=== PATIENT | female | born 1935 | race Hispanic/Latino ===

== ENCOUNTER 2017-12-28 14:09 | Observation (INO) | payer MEDICARE, OTHER ==
[2017-12-28 14:31] VITALS: BMI 35.7
--- NOTE | 2017-12-28 15:18 | ED PDOC ---
Arrival/HPI - General Chief Complaint: Lower Extremity Problem/Injury Time Seen by Provider: 12/28/17 14:52 Historian: Patient - History of Present Illness Narrative History of Present Illness (Text): 12/29/17 01:46 82yo female with pmhx of newly diagnosed NIDDM present with the daughter for b/ l lower leg pain and infection. The daughter states patient was seen at [facility] ED last week and was started on Metformin and keflex for her infection. She saw her PMD today for the worsening lower leg infection and was referred to ED. The daughter states that xray was done at [facility] and it was negative for osteomylitis and Doppler US was negative for DVT b/l. Her PMD referred her to ED for further evaluation. She denies fever, chills, SOB, chest pain, diaphoresis, recent travel/surgery, any other complaint. Past Medical History - Provider Review Nursing Documentation Reviewed: Yes - Infectious Disease Hx of Infectious Diseases: None - Reproductive Menopause: Yes - Cardiac Hx Cardiac Disorders: Yes Hx Hypertension: Yes - Pulmonary Hx Respiratory Disorders: No - Neurological Hx Neurological Disorder: No - HEENT Hx HEENT Disorder: Yes Other/Comment: Wears glasses - Endocrine/Metabolic Hx Endocrine Disorders: Yes Hx Diabetes Mellitus Type 1: Yes - Hematological/Oncological Hx Blood Disorders: No - Integumentary Hx Dermatological Disorder: Yes Hx Cellulitis: Yes - Musculoskeletal/Rheumatological Hx Musculoskeletal Disorders: No - Gastrointestinal Hx Gastrointestinal Disorders: No - Genitourinary/Gynecological Hx Genitourinary Disorders: No - Psychiatric Hx Psychophysiologic Disorder: Yes Hx Depression: Yes Hx Substance Use: No - Surgical History Hx Appendectomy: Yes Hx Cholecystectomy: Yes Hx Orthopedic Surgery: Yes (Bunion R Foot) Family/Social History - Physician Review Nursing Documentation Reviewed: Yes Family/Social History: Unknown Family HX Smoking Status: Never Smoked Hx Alcohol Use: Yes Frequency of alcohol use: Socially Hx Substance Use: No Allergies/Home Meds Allergies/Adverse Reactions: Allergies shellfish derived Allergy (Verified 12/28/17 14:31) ANAPHYLAXIS Home Medications: Home Meds Medication Instructions Recorded Confirmed Cephalexin [Keflex] 500 mg PO DAILY 12/28/17 12/28/17 metFORMIN [glucOPHAGE] 500 mg PO BID 12/28/17 12/28/17 Review of Systems - Physician Review All systems were reviewed & negative as marked: Yes - Review of Systems Constitutional: Normal Eyes: Normal ENT: Normal Respiratory: Normal Cardiovascular: Edema. absent: Chest Pain, Palpitations, Calf Pain Gastrointestinal: Normal Genitourinary Female: Normal Musculoskeletal: Arthralgias (Lower leg pain) Skin: Normal Neurological: Normal Endocrine: Normal Hemo/Lymphatic: Normal Psychiatric: Normal Physical Exam Vital Signs Reviewed: Yes Vital Signs Temp Pulse Resp BP Pulse Ox 12/28/17 17:28 89 18 145/71 97 12/28/17 16:50 96 H 18 148/79 97 12/28/17 14:31 98.6 F 100 H 18 150/89 97 Temperature: Afebrile Blood Pressure: Normal Pulse: Regular Respiratory Rate: Normal Appearance: Positive for: Well-Appearing, Non-Toxic, Comfortable Pain Distress: None Mental Status: Positive for: Alert and Oriented X 3 - Systems Exam Head: Present: Atraumatic, Normocephalic Pupils: Present: PERRL Extroacular Muscles: Present: EOMI Conjunctiva: Present: Normal Mouth: Present: Moist Mucous Membranes Neck: Present: Normal Range of Motion Respiratory/Chest: Present: Clear to Auscultation, Good Air Exchange. No: Respiratory Distress, Accessory Muscle Use Cardiovascular: Present: Regular Rate and Rhythm, Normal S1, S2. No: Murmurs Abdomen: No: Tenderness, Distention, Peritoneal Signs Back: Present: Normal Inspection Upper Extremity: Present: Normal Inspection. No: Cyanosis, Edema Lower Extremity: Present: Edema (3+ pitting edema ), Tenderness (B/L LE), Erythema (Over right posterior lower leg with small wound noted), Temperature Abnormalties (Warm to touch), Neurovascularly Intact. No: CALF TENDERNESS Neurological: Present: GCS=15, CN II-XII Intact, Speech Normal Skin: Present: Warm, Dry, Normal Color. No: Rashes Psychiatric: Present: Alert, Oriented x 3, Normal Insight, Normal Concentration Medical Decision Making ED Course and Treatment: 12/29/17 01:42 PT presented for stated history. she was hemodynamically stable. Her lab was noted without leukocytosis. Insulin was given in ED for hyperglycemia. Pt is a new onset diabetic and also failed outpt oral antibiotic. She was admitted for IV abx. EKG Sinus rhythm with 1st degree AV block @82bpm NSTEMI CXR Cardiomegaly. NAD Case was DW Dr. Robles and pt was admitted. - Lab Interpretations Lab Results: 12/28/17 15:38 12/28/17 15:38 Lab Results 12/28/17 16:40: POC Glucose (mg/dL) 377 H 12/28/17 15:38: Troponin I < 0.01, NT-Pro-B Natriuret Pep 66.5 12/28/17 15:38: Sodium 134, Potassium 4.4, Chloride 89 L, Carbon Dioxide 34 H, Anion Gap 16, BUN 35 H, Creatinine 1.0, Est GFR ( Amer) > 60, Est GFR ( Non-Af Amer) 53, Random Glucose 391 H*, Calcium 10.8 H, Total Bilirubin 0.3, AST 33, ALT 35, Alkaline Phosphatase 88, Total Protein 7.4, Albumin 4.2, Globulin 3.1, Albumin/Globulin Ratio 1.3 12/28/17 15:38: PT 11.6, INR 1.02, APTT 27.0 12/28/17 15:38: WBC 7.9, RBC 4.62, Hgb 14.4, Hct 40.6, MCV 87.9, MCH 31.2, MCHC 35.5, RDW 13.7, Plt Count 222, MPV 11.2 H, Gran % 64.8, Lymph % (Auto) 26.5, [place] % (Auto) 6.6 H, Eos % (Auto) 1.8, Baso % (Auto) 0.3, Gran # 5.09, Lymph # ( Auto) 2.1, [place] # (Auto) 0.5, Eos # (Auto) 0.1, Baso # (Auto) 0.02 - RAD Interpretation Radiology Orders: 12/28/17 17:22 CHEST PORTABLE [RAD] Stat - Medication Orders Current Medication Orders: Acetaminophen (Tylenol 325mg Tab) 650 mg PO Q6H PRN PRN Reason: Fever >100.4 F Furosemide (Lasix) 40 mg IVP DAILY [facility] Ampicillin Sodium/Sulbactam (Sodium 1.5 gm/ Sodium Chloride) 100 mls @ 200 mls/ hr IVPB Q6 [facility] PRN Reason: Protocol Last Admin: 12/29/17 00:02 Dose: 200 mls/hr eMAR Start Stop Document 12/29/17 00:02 [facility]AD (Rec: 12/29/17 00:02 [id number]) Intravenous Solution Start Date 12/29/17 Start Time 00:02 Insulin Human Regular (Humulin R Low) 0 units SC ACHS CY[facility]Y PRN Reason: Protocol Last Admin: 12/28/17 22:00 Dose: Not Given Non-Admin Reason: Blood Sugar Parameter MAR Blood Glucose Document 12/28/17 22:00 [facility] (Rec: 12/29/17 00:00 [id number]) Blood Glucose Finger Stick Blood Glucose (70-120) 251 Subcutaneous Administrations Document 12/28/17 22:00 [facility] (Rec: 12/29/17 00:00 [id number]) Charges for Administration # of Subcutaneous Administrations 1 Potassium Chloride (K-Dur 20 Meq Er Tab) 20 meq PO BRK CYND[facility] Discontinued Medications Ceftriaxone Sodium (Rocephin 1 Gram Ivpb) 1 gm in 100 mls @ 100 mls/hr IVPB DAILY [facility] PRN Reason: Protocol Stop: 12/28/17 17:25 Last Admin: 12/28/17 17:42 Dose: Piperacillin Sod/Tazobactam Sod (Zosyn 3.375 In Ns 100ml) 100 mls @ 200 mls/hr IVPB STAT STA PRN Reason: Protocol Stop: 12/28/17 17:43 Last Admin: 12/28/17 17:42 Dose: 200 mls/hr eMAR Start Stop Document 12/28/17 17:42 EQ (Rec: 12/28/17 17:42 EQ [id number]) Intravenous Solution Start Date 12/28/17 Start Time 17:42 Insulin Human Regular (Humulin R) 8 units IVP ONCE STA Stop: 12/28/17 16:32 Last Admin: 12/28/17 17:14 Dose: 8 units MAR Blood Glucose Document 12/28/17 17:14 EQ (Rec: 12/28/17 17:14 EQ [id number]) Blood Glucose Finger Stick Blood Glucose (70-120) 371 IVP Administration Document 12/28/17 17:14 EQ (Rec: 12/28/17 17:14 EQ [id number]) Charges for Administration # of IVP Administrations 1 Disposition/Present on Arrival - Present on Arrival Any Indicators Present on Arrival: No History of DVT/PE: No History of Uncontrolled Diabetes: No Urinary Catheter: No History of Decub. Ulcer: No History Surgical Site Infection Following: None - Disposition Have Diagnosis and Disposition been Completed?: Yes Diagnosis: Hyperglycemia, Cellulitis Disposition: HOSPITALIZED Disposition Time: 16:35 Patient Plan: Admission Condition: FAIR
[2017-12-28 16:00] LABS: BASO # 0.02 K/mm3 (0.0-2.0); BASO % 0.3 % (0.0-3.0); EOS # 0.1 (0.0-0.7); EOS % 1.8 % (1.5-5.0); GRAN # 5.09 (1.4-6.5); GRAN % 64.8 % (50.0-68.0); HEMOGLOBIN 14.4 g/dL (12.0-16.0); LYMPH # 2.1 (1.2-3.4); LYMPH % 26.5 % (22.0-35.0); MEAN CELL VOLUME 87.9 fl (80.0-105.0); MEAN CORPUSCULAR HEMOGLOBIN 31.2 pg (25.0-35.0); MEAN CORPUSCULAR HGB CONC 35.5 g/dl (31.0-37.0); MEAN PLATELET VOLUME 11.2 fl (7.0-11.0); MONO # 0.5 (0.1-0.6); MONO % 6.6 % (1.0-6.0); RBC 4.62 10^6/uL (3.5-6.1); RED CELL DISTRIBUTION WIDTH 13.7 % (11.5-14.5); WHITE BLOOD COUNT 7.9 10^3/ul (4.5-11.0)
[2017-12-28 16:15] LABS: INR 1.02 (0.93-1.08); PROTHROMBIN TIME 11.6 SECONDS (9.4-12.5)
[2017-12-28] MEDS ORDERED: cefTRIAXone 1 gm 1 GM/100 ML BAG IVPB STA (16:26)
[2017-12-28 16:30] LABS: ALB/GLOB RATIO 1.3 (1.1-1.8); ALBUMIN 4.2 g/dL (3.0-4.8); ALT/SGPT 35 U/L (7-56); AST/SGOT 33 U/L (14-36); BLOOD UREA NITROGEN 35 mg/dL (7-21); CALCIUM 10.8 mg/dL (8.4-10.5); GFR AFRICAN-AMERICAN > 60; GFR NON-AFRICAN AMERICAN 53
[2017-12-28] MEDS ORDERED: Insulin Regular 1 UNITS/0.01 ML ML IVP STA (16:31)
[2017-12-28] MEDS ORDERED: Piperacillin/Tazobact 3.375 gm 100 ML IVPB STA (17:14)
--- NOTE | 2017-12-28 18:30 | RAD ---
HISTORY: admission COMPARISON: No prior. FINDINGS: LUNGS: No active pulmonary disease. PLEURA: No significant pleural effusion identified, no pneumothorax apparent. CARDIOVASCULAR: Cardiomegaly apparent. No pulmonary vascular congestion. OSSEOUS STRUCTURES: No significant abnormalities. VISUALIZED UPPER ABDOMEN: Normal. OTHER FINDINGS: Obese body habitus obscures exam somewhat. IMPRESSION: Cardiomegaly. No acute infiltrate or pleural effusion identified. Pulmonary vascular congestion not apparent.
--- NOTE | 2017-12-28 20:01 | CARD ---
APPROVED REPORT EKG Measurement Heart [id number] <Conclusion> Sinus rhythm with 1st degree AV block Inferior infarct, age undetermined Possible Anterior infarct, age undetermined Abnormal ECG
[2017-12-28 21:18] LABS: B-TYPE NATRIURETIC PEPTIDE 66.5 pg/mL (0-450); TROPONIN I < 0.01 ng/mL
[2017-12-28] MEDS: Insulin Reg-LOW-Coverage SC SCH (22:00)
[2017-12-29 07:07] LABS: BASO # 0.02 K/mm3 (0.0-2.0); BASO % 0.3 % (0.0-3.0); EOS # 0.1 (0.0-0.7); EOS % 1.9 % (1.5-5.0); GRAN # 4.31 (1.4-6.5); GRAN % 64.1 % (50.0-68.0); HEMOGLOBIN 13.1 g/dL (12.0-16.0); LYMPH # 1.9 (1.2-3.4); MEAN CELL VOLUME 87.9 fl (80.0-105.0); MEAN CORPUSCULAR HEMOGLOBIN 30.5 pg (25.0-35.0); MEAN CORPUSCULAR HGB CONC 34.7 g/dl (31.0-37.0); MEAN PLATELET VOLUME 10.6 fl (7.0-11.0); MONO # 0.4 (0.1-0.6); MONO % 5.7 % (1.0-6.0); RBC 4.29 10^6/uL (3.5-6.1); RED CELL DISTRIBUTION WIDTH 13.9 % (11.5-14.5); WHITE BLOOD COUNT 6.7 10^3/ul (4.5-11.0)
[2017-12-29 07:37] LABS: ALB/GLOB RATIO 1.2 (1.1-1.8); ALBUMIN 3.4 g/dL (3.0-4.8); CALCIUM 10.2 mg/dL (8.4-10.5)
[2017-12-29] MEDS: Insulin Reg-LOW-Coverage SC SCH ×4 (09:28→22:00)
[2017-12-29] MEDS: Potassium Chloride 20 mEq ER Tab PO SCH (09:36)
--- NOTE | 2017-12-29 17:12 | HP ---
DATE OF EXAM: 12/29/2017 HISTORY OF PRESENT ILLNESS: The patient is an 82-year-old female, admitted through the emergency department on 12/28/2017 with swelling, redness and pain of the left leg. The patient is admitted for further evaluation and treatment of cellulitis. PAST MEDICAL HISTORY: The patient's past medical history includes type 2 diabetes mellitus, which has been recently uncontrolled; congestive heart failure and hyperparathyroidism with hypercalcemia. The patient also has a history of degenerative joint disease with chronic arthritis. The patient has a history of CA of the colon, status post appendectomy and cholecystectomy. ALLERGIES: THE PATIENT HAS NO KNOWN DRUG ALLERGIES: CURRENT MEDICATIONS: Include Fosamax 10 mg daily. SOCIAL HISTORY: There is no history of tobacco or alcohol use. The patient needs assistance with IADLs and ADLs. REVIEW OF SYSTEMS: The patient denies any chest pain, shortness of breath. There is no nausea, no vomiting, no diarrhea. No fever, no chills. No melena, no bright red blood per rectum. No jaundice. PHYSICAL EXAMINATION: GENERAL: The patient is a well-developed obese female, in no acute distress. VITAL SIGNS: Blood pressure 150/82, temperature 97.9, pulse 78, respiratory rate 20. HEENT: Head is normocephalic, atraumatic. Pupils equal, round, reactive to light. Extraocular movements intact. She has decreased hearing bilaterally. NECK: Supple with no thyromegaly. No carotid bruit. No adenopathy. LUNGS: Clear. HEART: Regular rate and rhythm. ABDOMEN: Soft, obese, nontender. Bowel sounds are normoactive. EXTREMITIES: There is swelling and erythema of the left lower extremity with an area of abrasion on the posterior calf, approximately 1 cm with no purulent drainage at present. NEUROLOGICAL: The patient is awake and confused without focal sensory or motor deficits. SKIN: Warm and dry. LABORATORY DATA: WBC 6.7, hemoglobin 13.1, hematocrit 37.7. Sodium 137, potassium 4.1, chloride 95, CO2 of 32, BUN 35, creatinine 1.2, glucose 277. IMPRESSION: 1. Cellulitis of the left leg. 2. Type 2 diabetes mellitus, uncontrolled. 3. History of congestive heart failure. 4. Degenerative joint disease/obesity. 5. Alzheimer's disease. PLAN: The patient will be admitted to the medical-surgical floor, started empirically on Unasyn 1.5 g IV every [address]. [address] on Accu-Cheks for low-dose regular insulin coverage algorithm. Physical Therapy and Social Work for discharge planning. PAULA Vargas MD [facility]
[2017-12-30] MEDS: Insulin Reg-LOW-Coverage SC SCH ×4 (08:06→23:09)
[2017-12-30] MEDS: Potassium Chloride 20 mEq ER Tab PO SCH (08:07)
--- NOTE | 2017-12-30 11:49 | CP.PCM.PN ---
Subjective - Date & Time of Evaluation Date of Evaluation: 12/30/17 Time of Evaluation: 09:40 - Subjective Subjective: no complaints, denies chest pain, no SOB Objective - Vital Signs/Intake and Output Vital Signs (last 24 hours): Temp Pulse Resp BP Pulse Ox 97.7 F 70 20 130/80 95 12/30/17 06:00 12/30/17 06:00 12/30/17 06:00 12/30/17 09:30 12/30/17 06:00 Intake and Output: 12/30/17 12/30/17 06:59 18:59 Intake Total 400 Balance 400 - Medications Medications: Current Medications Acetaminophen (Tylenol 325mg Tab) 650 mg PO Q6H PRN PRN Reason: Fever >100.4 F Furosemide (Lasix) 20 mg PO DAILY [facility] Last Admin: 12/30/17 09:30 Dose: 20 mg Ampicillin Sodium/Sulbactam (Sodium 1.5 gm/ Sodium Chloride) 100 mls @ 200 mls/ hr IVPB Q6 [facility] PRN Reason: Protocol Last Admin: 12/30/17 05:12 Dose: 200 mls/hr Insulin Human Regular (Humulin R Low) 0 units SC ACHS CY[facility] PRN Reason: Protocol Last Admin: 12/30/17 08:06 Dose: 1 units Metformin HCl (Glucophage) 500 mg PO BID [facility] Last Admin: 12/30/17 09:31 Dose: 500 mg Potassium Chloride (K-Dur 20 Meq Er Tab) 20 meq PO BRK [facility] Last Admin: 12/30/17 08:07 Dose: 20 meq - Labs Labs: 12/29/17 06:45 12/29/17 06:45 PT 11.6 SECONDS (9.4-12.5) 12/28/17 15:38 INR 1.02 (0.93-1.08) 12/28/17 15:38 APTT 27.0 Seconds (25.1-36.5) 12/28/17 15:38 - Respiratory Exam Respiratory Exam: Clear to Ausculation Bilateral, NORMAL BREATHING PATTERN - Cardiovascular Exam Cardiovascular Exam: REGULAR RHYTHM - GI/Abdominal Exam GI & Abdominal Exam: Soft, Normal Bowel Sounds - Extremities Exam Additional comments: decreased swelling and redness L leg - Neurological Exam Neurological Exam: Altered, Awake - Skin Skin Exam: Dry, Warm Assessment and Plan (1) Cellulitis of left leg without foot Status: Acute (2) Type II diabetes mellitus Status: Chronic (3) Alzheimer disease Status: Chronic - Assessment and Plan (Free Text) Plan: continue IV Unasyn, insulin coverage, PT & SW for DC planning
[2017-12-31] MEDS: Potassium Chloride 20 mEq ER Tab PO SCH (08:09)
[2017-12-31] MEDS: Insulin Reg-LOW-Coverage SC SCH ×4 (08:09→21:32)
--- NOTE | 2017-12-31 10:51 | CP.PCM.PN ---
Subjective - Date & Time of Evaluation Date of Evaluation: 12/31/17 Time of Evaluation: 10:30 - Subjective Subjective: c/o pain R foot, OOB in chair, no chest pain or SOB Objective - Vital Signs/Intake and Output Vital Signs (last 24 hours): Temp Pulse Resp BP Pulse Ox 97.7 F 75 20 168/86 H 96 12/31/17 06:00 12/31/17 06:00 12/31/17 06:00 12/31/17 09:39 12/31/17 06:00 Intake and Output: 12/31/17 12/31/17 06:59 18:59 Intake Total 880 Balance 880 - Medications Medications: Current Medications Acetaminophen (Tylenol 325mg Tab) 650 mg PO Q6H PRN PRN Reason: Fever >100.4 F Furosemide (Lasix) 20 mg PO DAILY [facility] Last Admin: 12/31/17 09:39 Dose: 20 mg Ampicillin Sodium/Sulbactam (Sodium 1.5 gm/ Sodium Chloride) 100 mls @ 200 mls/ hr IVPB Q6 CYNDY PRN Reason: Protocol Last Admin: 12/31/17 05:14 Dose: 200 mls/hr Insulin Human Regular (Humulin R Low) 0 units SC ACHS CYNDY PRN Reason: Protocol Last Admin: 12/31/17 08:09 Dose: 1 units Metformin HCl (Glucophage) 1,000 mg PO BID [facility] Potassium Chloride (K-Dur 20 Meq Er Tab) 20 meq PO BRK [facility] Last Admin: 12/31/17 08:09 Dose: 20 meq Tramadol HCl (Ultram) 50 mg PO TID [facility] - Labs Labs: 12/29/17 06:45 12/29/17 06:45 PT 11.6 SECONDS (9.4-12.5) 12/28/17 15:38 INR 1.02 (0.93-1.08) 12/28/17 15:38 APTT 27.0 Seconds (25.1-36.5) 12/28/17 15:38 - Respiratory Exam Respiratory Exam: Clear to Ausculation Bilateral - Cardiovascular Exam Cardiovascular Exam: REGULAR RHYTHM - GI/Abdominal Exam GI & Abdominal Exam: Soft, Normal Bowel Sounds - Extremities Exam Extremities Exam: Pedal Edema - Neurological Exam Neurological Exam: Altered, Awake - Skin Skin Exam: Dry, Warm Assessment and Plan (1) Cellulitis of left leg without foot Status: Acute (2) Type II diabetes mellitus Status: Chronic (3) Alzheimer disease Status: Chronic - Assessment and Plan (Free Text) Plan: continue IV Unasyn, Tramadol 50mg tid PRN pain, PT and SW for DC planning
[2017-12-31 20:31] LABS: BASO # 0.02 K/mm3 (0.0-2.0); BASO % 0.2 % (0.0-3.0); EOS % 0.3 % (1.5-5.0); GRAN # 8.05 (1.4-6.5); HEMOGLOBIN 13.7 g/dL (12.0-16.0); LYMPH # 1.7 (1.2-3.4); LYMPH % 16.7 % (22.0-35.0); MEAN CELL VOLUME 87.2 fl (80.0-105.0); MEAN CORPUSCULAR HEMOGLOBIN 30.7 pg (25.0-35.0); MEAN CORPUSCULAR HGB CONC 35.2 g/dl (31.0-37.0); MEAN PLATELET VOLUME 10.4 fl (7.0-11.0); MONO # 0.5 (0.1-0.6); MONO % 4.8 % (1.0-6.0); RBC 4.46 10^6/uL (3.5-6.1); RED CELL DISTRIBUTION WIDTH 13.5 % (11.5-14.5); WHITE BLOOD COUNT 10.3 10^3/ul (4.5-11.0)
[2017-12-31 21:00] LABS: TROPONIN I < 0.01 ng/mL
[2017-12-31 21:01] LABS: ALB/GLOB RATIO 1.2 (1.1-1.8); ALBUMIN 3.8 g/dL (3.0-4.8); ALT/SGPT 34 U/L (7-56); AST/SGOT 21 U/L (14-36); BLOOD UREA NITROGEN 23 mg/dL (7-21); CALCIUM 10.4 mg/dL (8.4-10.5); GFR AFRICAN-AMERICAN > 60; GFR NON-AFRICAN AMERICAN > 60
[2018-01-01] MEDS: Insulin Reg-LOW-Coverage SC SCH ×4 (08:24→21:39)
[2018-01-01] MEDS: Potassium Chloride 20 mEq ER Tab PO SCH (08:24)
--- NOTE | 2018-01-01 12:59 | CP.PCM.PN ---
Subjective - Date & Time of Evaluation Date of Evaluation: 01/01/18 Time of Evaluation: 10:40 - Subjective Subjective: OOB in chair, NAD Objective - Vital Signs/Intake and Output Vital Signs (last 24 hours): Temp Pulse Resp BP Pulse Ox 97.7 F 91 H 20 164/94 H 95 01/01/18 07:43 01/01/18 07:43 01/01/18 07:43 01/01/18 10:22 01/01/18 07:43 Intake and Output: 01/01/18 01/01/18 06:59 18:59 Intake Total 600 Output Total 1020 Balance -420 - Medications Medications: Current Medications Acetaminophen (Tylenol 325mg Tab) 650 mg PO Q6H PRN PRN Reason: Fever >100.4 F Furosemide (Lasix) 20 mg PO DAILY [facility] Last Admin: 01/01/18 10:22 Dose: 20 mg Ampicillin Sodium/Sulbactam (Sodium 1.5 gm/ Sodium Chloride) 100 mls @ 200 mls/ hr IVPB Q6 CYND[facility] PRN Reason: Protocol Last Admin: 01/01/18 11:41 Dose: 200 mls/hr Insulin Human Regular (Humulin R Low) 0 units SC ACHS CYNDY PRN Reason: Protocol Last Admin: 01/01/18 11:46 Dose: 3 units Losartan Potassium (Cozaar) 50 mg PO DAILY [facility] Last Admin: 01/01/18 11:40 Dose: 50 mg Metformin HCl (Glucophage) 1,000 mg PO BID [facility] Last Admin: 01/01/18 10:22 Dose: 1,000 mg Potassium Chloride (K-Dur 20 Meq Er Tab) 20 meq PO BRK [facility] Last Admin: 01/01/18 08:24 Dose: 20 meq - Labs Labs: 12/31/17 20:20 12/31/17 20:20 PT 11.6 SECONDS (9.4-12.5) 12/28/17 15:38 INR 1.02 (0.93-1.08) 12/28/17 15:38 APTT 27.0 Seconds (25.1-36.5) 12/28/17 15:38 - Respiratory Exam Respiratory Exam: Clear to Ausculation Bilateral, NORMAL BREATHING PATTERN - Cardiovascular Exam Cardiovascular Exam: REGULAR RHYTHM - GI/Abdominal Exam GI & Abdominal Exam: Soft, Normal Bowel Sounds - Extremities Exam Extremities Exam: Pedal Edema - Neurological Exam Neurological Exam: Altered, Awake - Skin Skin Exam: Dry, Warm Assessment and Plan (1) Cellulitis of left leg without foot Status: Acute (2) Type II diabetes mellitus Status: Chronic (3) Alzheimer disease Status: Chronic - Assessment and Plan (Free Text) Plan: continue IV Unasyn, PT & SW for discharge planning
[2018-01-02] MEDS: Potassium Chloride 20 mEq ER Tab PO SCH (08:10)
[2018-01-02] MEDS: Insulin Reg-LOW-Coverage SC SCH ×4 (08:11→21:42)
--- NOTE | 2018-01-02 09:17 | CP.PCM.PN ---
Subjective - Date & Time of Evaluation Date of Evaluation: 01/02/18 Time of Evaluation: 09:00 - Subjective Subjective: OOB in chair, NAD Objective - Vital Signs/Intake and Output Vital Signs (last 24 hours): Temp Pulse Resp BP Pulse Ox 98.4 F 94 H 20 169/85 H 98 01/02/18 07:39 01/02/18 07:39 01/02/18 07:39 01/02/18 07:39 01/02/18 07:39 - Medications Medications: Current Medications Acetaminophen (Tylenol 325mg Tab) 650 mg PO Q6H PRN PRN Reason: Fever >100.4 F Furosemide (Lasix) 20 mg PO DAILY [facility] Last Admin: 01/01/18 10:22 Dose: 20 mg Ampicillin Sodium/Sulbactam (Sodium 1.5 gm/ Sodium Chloride) 100 mls @ 200 mls/ hr IVPB Q6 [facility] PRN Reason: Protocol Last Admin: 01/02/18 05:08 Dose: 200 mls/hr Insulin Human Regular (Humulin R Low) 0 units SC ACHS [facility] PRN Reason: Protocol Last Admin: 01/02/18 08:11 Dose: 1 units Losartan Potassium (Cozaar) 50 mg PO DAILY [facility] Last Admin: 01/01/18 11:40 Dose: 50 mg Metformin HCl (Glucophage) 1,000 mg PO BID [facility] Last Admin: 01/01/18 17:00 Dose: 1,000 mg Potassium Chloride (K-Dur 20 Meq Er Tab) 20 meq PO BRK [facility] Last Admin: 01/02/18 08:10 Dose: 20 meq - Labs Labs: 12/31/17 20:20 12/31/17 20:20 PT 11.6 SECONDS (9.4-12.5) 12/28/17 15:38 INR 1.02 (0.93-1.08) 12/28/17 15:38 APTT 27.0 Seconds (25.1-36.5) 12/28/17 15:38 - Respiratory Exam Respiratory Exam: Clear to Ausculation Bilateral, NORMAL BREATHING PATTERN - Cardiovascular Exam Cardiovascular Exam: REGULAR RHYTHM - GI/Abdominal Exam GI & Abdominal Exam: Soft, Normal Bowel Sounds - Extremities Exam Extremities Exam: Pedal Edema - Neurological Exam Neurological Exam: Altered, Awake - Skin Skin Exam: Dry, Warm Assessment and Plan (1) Cellulitis of left leg without foot Status: Acute (2) Type II diabetes mellitus Status: Chronic (3) Alzheimer disease Status: Chronic - Assessment and Plan (Free Text) Plan: continue IV Unasyn, PT & SW for discharge planning
[2018-01-03] MEDS: Potassium Chloride 20 mEq ER Tab PO SCH (07:53)
[2018-01-03] MEDS: Insulin Reg-LOW-Coverage SC SCH (07:53)
[2018-01-03 08:49] VITALS: BP 172/95; PULSE 86; RESP 19; TEMP 98; O2SAT 97
== END 2018-01-03 12:58 | disposition home or self-care (01) ==
LOC: ED 14:09 → ERH 17:49 → INTOOBSV 17:49 → 5RSO 18:49
PROVIDERS: ADMIT Internal Medicine; ATTEND Internal Medicine
DX: L03.116 Cellulitis of left lower limb (principal); E11.65 Type 2 diabetes mellitus with hyperglycemia; E66.9 Obesity, unspecified; M19.90 Unspecified osteoarthritis, unspecified site; G30.9 Alzheimer's disease, unspecified; I11.0 Hypertensive heart disease with heart failure; I50.9 Heart failure, unspecified; I44.0 Atrioventricular block, first degree; R40.2412 Glasgow coma scale score 13-15, at arrival to emergency department; Z85.038 Personal history of other malignant neoplasm of large intestine; Z90.49 Acquired absence of other specified parts of digestive tract; Z91.013 Allergy to seafood; Z87.892 Personal history of anaphylaxis; Z68.35 Body mass index [BMI] 35.0-35.9, adult
CPT/HCPCS: 36415; 71045; 80053; 82948; 83880; 84484; 85025; 85610; 85730; 87040; 93005; 96374; 97116; 97162; 99284; G0378; G8978; G8979; J0295; J1940; J2543

== ENCOUNTER 2018-07-26 13:20 | Inpatient (IN) | payer MEDICARE, OTHER ==
[2018-07-26 13:43] VITALS: BMI 36.6
--- NOTE | 2018-07-26 14:16 | ED PDOC ---
Arrival/HPI <Daniel Perla - Last Filed: 07/26/18 15:04> - General Historian: Patient, Family - History of Present Illness Narrative History of Present Illness (Text): 07/26/18 14:11 83F pmhx of CHF HTN DM and Alzeihmer's presents to ED sent in by PMD Dr Robles. Pt complains of fatigue, low activity tolerance, leg swelling and shortness of breath. Pt has also had an acute change in mental status from baseline as per family. Pt has significant memory deficits. Pt denies chest pain, nausea, vomiting, recent sickness/ill contacts Time/Duration: 24 hours Symptom Onset: Sudden Symptom Course: Unchanged Activities at Onset: Light <Pierre Spencer - Last Filed: 07/26/18 16:03> - General Chief Complaint: Altered Mental Status Time Seen by Provider: 07/26/18 13:21 Past Medical History - Provider Review Nursing Documentation Reviewed: Yes - Infectious Disease Hx of Infectious Diseases: None - Cardiac Hx Cardiac Disorders: Yes Hx Congestive Heart Failure: Yes Hx Hypertension: Yes - Pulmonary Hx Respiratory Disorders: No - Neurological Hx Neurological Disorder: No - HEENT Hx HEENT Disorder: Yes Other/Comment: Wears glasses - Renal Hx Renal Disorder: No - Endocrine/Metabolic Hx Diabetes Mellitus Type 2: Yes - Hematological/Oncological Hx Blood Disorders: No - Integumentary Hx Dermatological Disorder: Yes Hx Cellulitis: Yes - Musculoskeletal/Rheumatological Hx Musculoskeletal Disorders: No - Gastrointestinal Hx Gastrointestinal Disorders: No - Genitourinary/Gynecological Hx Genitourinary Disorders: No - Psychiatric Hx Psychophysiologic Disorder: Yes Hx Depression: Yes Hx Substance Use: No - Surgical History Hx Appendectomy: Yes Hx Cholecystectomy: Yes Hx Orthopedic Surgery: Yes (Bunion R Foot) - Anesthesia Hx Anesthesia: Yes Hx Anesthesia Reactions: No Hx Malignant Hyperthermia: No <Pierre Spencer - Last Filed: 07/26/18 16:03> Family/Social History - Physician Review Nursing Documentation Reviewed: Yes Family/Social History: Unknown Family HX Smoking Status: Never Smoked Hx Alcohol Use: Yes Hx Substance Use: No <Pierre Spencer - Last Filed: 07/26/18 16:03> Allergies/Home Meds <Daniel Perla - Last Filed: 07/26/18 15:04> <Pierre Spencer - Last Filed: 07/26/18 16:03> Allergies/Adverse Reactions: Allergies shellfish derived Allergy (Verified 12/28/17 14:31) ANAPHYLAXIS Home Medications: Home Meds Medication Instructions Recorded Confirmed Alendronate [Fosamax] 10 mg PO DAILY 07/26/18 07/26/18 Review of Systems - Review of Systems Constitutional: Fatigue. absent: Fevers Eyes: absent: Vision Changes ENT: absent: Hearing Changes, TMJ Pain Respiratory: SOB. absent: Cough, Wheezing Cardiovascular: Edema (bilateral lower ext). absent: Chest Pain, Palpitations Gastrointestinal: absent: Abdominal Pain, Nausea, Vomiting Genitourinary Female: absent: Dysuria, Vaginal Bleeding Musculoskeletal: absent: Neck Pain Neurological: absent: Headache, Facial Droop Psychiatric: Other (memory deficits) <Pierre Spencer - Last Filed: 07/26/18 16:03> Physical Exam Vital Signs Reviewed: Yes Vital Signs Temp Pulse Resp BP Pulse Ox 07/26/18 13:42 98.4 F 92 H 18 147/76 97 <Daniel Perla - Last Filed: 07/26/18 15:04> Vital Signs Temp Pulse Resp BP Pulse Ox 07/26/18 13:42 98.4 F 92 H 18 147/76 97 Temperature: Afebrile Blood Pressure: Normal Pulse: Regular Respiratory Rate: Normal Appearance: Positive for: Non-Toxic Pain Distress: None Mental Status: Positive for: Confused Finger Stick Blood Glucose: 173 - Systems Exam Head: Present: Atraumatic, Normocephalic, Other (no facial droop) Extroacular Muscles: Present: EOMI. No: Gaze Palsy Conjunctiva: Present: Normal Mouth: Present: Moist Mucous Membranes Pharnyx: Present: ERYTHEMA Neck: Present: Normal Range of Motion Respiratory/Chest: Present: Rales (rao lower oro) Cardiovascular: Present: Regular Rate and Rhythm, Normal S1, S2, Peripheal Pulses Present Abdomen: No: Distention Lower Extremity: Present: Edema (+3). No: CALF TENDERNESS, Cresencio's Sign Neurological: Present: CN II-XII Intact Skin: Present: Warm, Dry, Normal Color Psychiatric: Present: Alert (oriented to self and place, memory deficits noted) <Pierre Spencer - Last Filed: 07/26/18 16:03> Medical Decision Making ED Course and Treatment: 07/26/18 15:04 Patient Seen with Resident: In agreement with resident note which contains more details about the patient. Patient seen and evaluated with resident. Came up with plan and treatment together. Impression: 83 year old female who presents to the emergency department complaining of generalized weakness. - Lab Interpretations Lab Results: pO2 37 mm/Hg (30-55) 07/26/18 14:15 VBG pH 7.36 (7.32-7.43) 07/26/18 14:15 VBG pCO2 59.0 (40-60) 07/26/18 14:15 VBG HCO3 33.3 mmol/l (21-28) H 07/26/18 14:15 VBG Total CO2 35.1 mmol.L (22-28) H 07/26/18 14:15 VBG O2 Sat (Calc) 76.5 % (40-65) H 07/26/18 14:15 VBG Base Excess 6.0 mmol/L (0.0-2.0) H 07/26/18 14:15 VBG Potassium 4.4 mmol/L (3.6-5.2) 07/26/18 14:15 Sodium 137.0 mmol/L (132-148) 07/26/18 14:15 Chloride 99.0 mmol/L (98-107) 07/26/18 14:15 Glucose 190 mg/dl (65-105) H 07/26/18 14:15 Lactate 2.2 mmol/L (0.7-2.1) H 07/26/18 14:15 FiO2 21.0 % 07/26/18 14:15 Troponin I 0.02 ng/mL D 07/26/18 14:12 NT-Pro-B Natriuret Pep 113 pg/mL (0-450) 07/26/18 14:12 Total Bilirubin 0.4 mg/dL (0.2-1.3) 07/26/18 14:12 AST 21 U/L (14-36) 07/26/18 14:12 ALT 28 U/L (7-56) 07/26/18 14:12 Alkaline Phosphatase 93 U/L (38-126) 07/26/18 14:12 Total Protein 7.4 g/dL (5.8-8.3) 07/26/18 14:12 Albumin 4.2 g/dL (3.0-4.8) 07/26/18 14:12 Globulin 3.3 gm/dL 07/26/18 14:12 Albumin/Globulin Ratio 1.3 (1.1-1.8) 07/26/18 14:12 - RAD Interpretation Narrative RAD Interpretations (Text): 07/26/18 15:[address] reviewed shows: IMPRESSION: no acute intracranial abnormality. Mild chronic microangiopathic changes and mild age-related global parenchymal volume loss. Chest X-ray reviewed, shows: IMPRESSION: No active pulmonary disease. Moderate cardiomegaly, prominent central vasculature and mild pulmonary venous congestion. Radiology Orders: 07/26/18 13:44 CHEST PORTABLE [RAD] Stat 07/26/18 13:53 HEAD W/O CONTRAST [CT] Stat Peg Driver: Radiologist - Medication Orders Current Medication Orders: Discontinued Medications Furosemide (Lasix) 20 mg IVP STAT STA Stop: 07/26/18 14:54 <Daniel Perla - Last Filed: 07/26/18 15:04> ED Course and Treatment: 07/26/18 14:23 #altered mental status -CT head w/o contrast -CBC CMP COAGs -VBG #CHF exacerbation -CXR -BNP, EKG -Trop x1 - RAD Interpretation Radiology Orders: 07/26/18 13:44 CHEST PORTABLE [RAD] Stat 07/26/18 13:53 HEAD W/O CONTRAST [CT] Stat <Pierre Spencer - Last Filed: 07/26/18 16:03> - Scribe Statement The provider has reviewed the documentation as recorded by the Louie Pena Provider Scribe Attestation: All medical record entries made by the Scribe were at my direction and personally dictated by me. I have reviewed the chart and agree that the record accurately reflects my personal performance of the history, physical exam, medical decision making, and the department course for this patient. I have also personally directed, reviewed, and agree with the discharge instructions and disposition. <Daniel Perla - Last Filed: 07/26/18 15:04> Disposition/Present on Arrival <Daniel Perla - Last Filed: 07/26/18 15:04> - Present on Arrival Any Indicators Present on Arrival: No History of DVT/PE: No History of Uncontrolled Diabetes: No Urinary Catheter: No History of Decub. Ulcer: No History Surgical Site Infection Following: None - Disposition Have Diagnosis and Disposition been Completed?: Yes Disposition Time: 16:03 Patient Plan: Admission <Pierre Spencer - Last Filed: 07/26/18 16:03> - Disposition Diagnosis: CHF exacerbation Disposition: HOSPITALIZED Condition: STABLE Discharge Instructions (ExitCare): Heart Failure (ED) Referrals: William Robles JD, MD [Primary Care Provider] - Follow up with primary Forms: [employer] (Citizen [place])
[2018-07-26 14:26] LABS: BASO % 0.3 % (0.0-3.0); EOS % 1.6 % (1.5-5.0); GRAN # 5.31 (1.4-6.5); GRAN % 69.2 % (50.0-68.0); HEMOGLOBIN 13.5 g/dL (12.0-16.0); LYMPH # 1.8 (1.2-3.4); LYMPH % 22.9 % (22.0-35.0); MEAN CELL VOLUME 90.2 fl (80.0-105.0); MEAN CORPUSCULAR HEMOGLOBIN 30.7 pg (25.0-35.0); MEAN PLATELET VOLUME 10.4 fl (7.0-11.0); MONO # 0.5 (0.1-0.6); RBC 4.4 10^6/uL (3.5-6.1); RED CELL DISTRIBUTION WIDTH 14.3 % (11.5-14.5); WHITE BLOOD COUNT 7.7 10^3/uL (4.5-11.0)
[2018-07-26 14:27] LABS: BASO # 0.02 K/mm3 (0.0-2.0); EOS # 0.1 (0.0-0.7)
[2018-07-26 14:27] LABS: VENOUS BLOOD GAS PO2 37 mm/Hg (30-55); VENOUS BLOOD PH 7.36 (7.32-7.43)
[2018-07-26 14:35] LABS: ALB/GLOB RATIO 1.3 (1.1-1.8); ALBUMIN 4.2 g/dL (3.0-4.8); ALT/SGPT 28 U/L (7-56); AST/SGOT 21 U/L (14-36); BLOOD UREA NITROGEN 25 mg/dL (7-21); CALCIUM 10.6 mg/dL (8.4-10.5); GFR NON-AFRICAN AMERICAN > 60
--- NOTE | 2018-07-26 14:43 | CT ---
Date of service: 07/26/2018 PROCEDURE: CT HEAD WITHOUT CONTRAST. HISTORY: altered mental status COMPARISON: None available. TECHNIQUE: Axial computed tomography images were obtained through the head/brain without intravenous contrast. Radiation dose: Total exam DLP = 940.47 mGy-cm. This CT exam was performed using one or more of the following dose reduction techniques: Automated exposure control, adjustment of the mA and/or kV according to patient size, and/or use of iterative reconstruction technique. FINDINGS: HEMORRHAGE: No intracranial hemorrhage. BRAIN: There are mild chronic microangiopathic changes. There is no mass, mass effect or abnormal extra-axial fluid collection. There is no territorial infarction. The midline sagittal structures are normal.There are coarse atherosclerotic calcifications in the cavernous carotid arteries. VENTRICLES: There is mild age-related global parenchymal volume loss and proportionate enlargement of the ventricles and cortical sulci. CALVARIUM: There is no calvarial fracture or extracranial soft tissue swelling. PARANASAL SINUSES: Predominantly clear. MASTOID AIR CELLS: Predominantly clear. OTHER FINDINGS: None. IMPRESSION: No acute intracranial abnormality. Mild chronic microangiopathic changes and mild age-related global parenchymal volume loss.
--- NOTE | 2018-07-26 14:45 | RAD ---
Date of service: 07/26/2018 HISTORY: CHF COMPARISON: 12/28/2017. FINDINGS: LUNGS: The lungs are well inflated. There is mild pulmonary venous congestion. No focal consolidation. PLEURA: No pleural effusions or pneumothorax. CARDIOVASCULAR: There is persistent moderate cardiomegaly and prominent central vasculature. There are aortic atherosclerotic calcifications present. OSSEOUS STRUCTURES: Within normal limits for the patient's age. VISUALIZED UPPER ABDOMEN: Normal. OTHER FINDINGS: None. IMPRESSION: No active pulmonary disease. Moderate cardiomegaly, prominent central vasculature and mild pulmonary venous congestion.
[2018-07-26 14:47] LABS: B-TYPE NATRIURETIC PEPTIDE 113 pg/mL (0-450); TROPONIN I 0.02 ng/mL
[2018-07-26 15:40] LABS: INR 1.03; PARTIAL THROMBOPLASTIN TIME 25.9 Seconds (25.1-36.5); PROTHROMBIN TIME 11.8 SECONDS (9.4-12.5)
[2018-07-26 17:54] LABS: URINE APPEARANCE CLEAR (CLEAR); URINE BILIRUBIN NEGATIVE (NEGATIVE); URINE BLOOD NEGATIVE (NEGATIVE); URINE COLOR LIGHT YELLOW (YELLOW); URINE GLUCOSE (UA) NEGATIVE (NEGATIVE); URINE LEUKOCYTE ESTERASE NEGATIVE Leu/uL (NEGATIVE); URINE PROTEIN NEGATIVE mg/dL (<30 mg/dL); URINE UROBILINOGEN 0.2 E.U./dL (<1 E.U./dL)
[2018-07-26 18:06] LABS: VENOUS BLOOD GAS BASE EXCESS 10.1 mmol/L (0.0-2.0); VENOUS BLOOD GAS PO2 70 mm/Hg (30-55); VENOUS BLOOD PH 7.46 (7.32-7.43)
--- NOTE | 2018-07-26 20:33 | CARD ---
APPROVED REPORT Date of service: 07/26/2018 EKG Measurement Heart [id number] <Conclusion> Sinus rhythm with premature atrial complexes Minimal voltage criteria for LVH, may be normal variant Inferior infarct, age undetermined Abnormal ECG
[2018-07-26] MEDS: Insulin Reg-LOW-Coverage SC SCH (22:15)
[2018-07-26] MEDS ORDERED: Pneumococcal 23-Valent Vaccine IM ONE (22:42)
[2018-07-26] MEDS ORDERED: Influenza Vaccine 60 mcg/0.5 mL SYR (4YR UP) IM ONE (22:42)
[2018-07-27 06:31] LABS: BASO # 0.02 K/mm3 (0.0-2.0); BASO % 0.3 % (0.0-3.0); EOS # 0.2 (0.0-0.7); EOS % 3.6 % (1.5-5.0); GRAN # 2.87 (1.4-6.5); GRAN % 49.8 % (50.0-68.0); HEMOGLOBIN 12.8 g/dL (12.0-16.0); LYMPH # 2.3 (1.2-3.4); LYMPH % 39.6 % (22.0-35.0); MEAN CELL VOLUME 90.9 fl (80.0-105.0); MEAN CORPUSCULAR HEMOGLOBIN 29.9 pg (25.0-35.0); MEAN CORPUSCULAR HGB CONC 32.9 g/dl (31.0-37.0); MEAN PLATELET VOLUME 10.6 fl (7.0-11.0); MONO # 0.4 (0.1-0.6); MONO % 6.7 % (1.0-6.0); RBC 4.28 10^6/uL (3.5-6.1); RED CELL DISTRIBUTION WIDTH 14.4 % (11.5-14.5); WHITE BLOOD COUNT 5.8 10^3/uL (4.5-11.0)
[2018-07-27 07:03] LABS: TROPONIN I < 0.01 ng/mL
[2018-07-27] MEDS: Insulin Reg-LOW-Coverage SC SCH ×4 (07:11→21:39)
[2018-07-27 07:20] LABS: ALB/GLOB RATIO 1.3 (1.1-1.8); ALBUMIN 3.7 g/dL (3.0-4.8); ALT/SGPT 22 U/L (7-56); AST/SGOT 20 U/L (14-36); BLOOD UREA NITROGEN 22 mg/dL (7-21); CALCIUM 10.1 mg/dL (8.4-10.5); GFR NON-AFRICAN AMERICAN > 60
[2018-07-27] MEDS: Potassium Chloride 20 mEq ER Tab PO SCH (10:12)
--- NOTE | 2018-07-27 11:21 | HP ---
DATE OF EXAM: 07/27/2018 HISTORY OF PRESENT ILLNESS: The patient is an 83-year-old female admitted through the emergency department on 07/26/2018 with increasing leg swelling, shortness of breath, confusion and inability to walk. There is no fever, chills, no chest pain. No cough. No nausea, no vomiting, no diarrhea. No melena, no bright red blood per rectum. PAST MEDICAL HISTORY: The patient has past medical history of type 2 diabetes mellitus, CHF and hyperparathyroidism with hypercalcemia, degenerative joint disease. PAST SURGICAL HISTORY: Includes appendectomy, cholecystectomy. ALLERGIES: THE PATIENT HAS NO KNOWN DRUG ALLERGIES. CURRENT MEDICATIONS: Include metformin 1000 mg twice daily, losartan 50 mg daily, Lasix 20 mg daily, potassium chloride 20 mEq daily, Fosamax 10 mg daily. SOCIAL HISTORY: The patient has no history of tobacco or alcohol use. The patient needs some assistance with IADLs and is independent with ADLs. REVIEW OF SYSTEMS: As above. PHYSICAL EXAMINATION: GENERAL: The patient is a well-developed, somewhat obese female in no acute distress. VITAL SIGNS: Blood pressure 153/89, temperature 98, pulse 86, respiratory rate 20. HEENT: Head is normocephalic, atraumatic. Pupils equal, round, reactive to light. Extraocular movements intact. NECK: Supple with no thyromegaly. No carotid bruit. No adenopathy. LUNGS: Show a few bibasilar rales. HEART: Regular rate and rhythm. ABDOMEN: Soft, obese, nontender. Bowel sounds are normoactive. EXTREMITIES: There is 2-3+ edema to the knees bilaterally. NEUROLOGIC: The patient is awake and slightly confused without focal sensory or motor deficits. SKIN: Warm and dry. LABORATORY DATA: WBCs 5.8, hemoglobin 12.8, hematocrit 38.9. Sodium 138, potassium 3.8, chloride 99, CO2 of 33, BUN 22, creatinine 0.8, glucose 151, calcium 10.1. Troponin is less than 0.01. BNP is 113. Chest x-ray shows mild vascular congestion, moderate cardiomegaly. CT of the head is negative for any acute bleeds or infarcts. IMPRESSION: 1. Altered mental status. 2. Hypertension, hypertensive cardiovascular disease, congestive heart failure. 3. Type 2 diabetes mellitus. 4. Degenerative joint disease/obesity. 5. Probable Dementia (Alzheimer's v Mixed Vascular) PLAN: The patient is admitted to the Telemetry Unit. We will give IV Lasix. Cardiology consult with Dr. Mckenzie; Neurology consult with Dr. Pina; physical therapy and social work for discharge planning. PAULA Vargas MD RYAN
--- NOTE | 2018-07-27 23:01 | CON ---
DATE OF CONSULTATION: 07/27/2018 The patient in Room 275, Bed 1. REASON FOR CONSULTATION: CHF. HISTORY OF PRESENT ILLNESS: This is an 83-year-old female who is known to have CHF in the past, hypertension, diabetes, Alzheimer's disease, was brought to the hospital with leg swelling and shortness of breath. Also, the patient's altered mental status, as compared to before, she has significant memory deficit and she was more confused as compared to before. There is no history of chest pain or palpitation. PAST MEDICAL HISTORY: The patient known to have hyperparathyroidism, hypercalcemia, diabetes mellitus, CHF, degenerative joint disease. PAST SURGICAL HISTORY: The patient had a cholecystectomy and also had appendectomy. PERSONAL HISTORY: No history of smoking or drinking. HOME MEDICATIONS: Losartan 50 mg daily, Lasix 20 daily, metformin 1000 mg twice a day, potassium 20 mEq daily, Fosamax 10 mg daily. ALLERGIES: NO HISTORY OF ANY ALLERGIES. REVIEW OF SYSTEMS: All the systems reviewed, positives mentioned in the history, others are negative. PHYSICAL EXAMINATION: VITAL SIGNS: Blood pressure 147/78, respirations 20, pulse 79, temperature 97.6. HEENT: Head is normocephalic. Eyes: Pupils normal. Conjunctivae normal. Nose and throat normal. NECK: JVP low. Carotid equal. Thorax AP diameter normal. LUNGS: Few basal rales. CARDIOVASCULAR: S1 and S2. ABDOMEN: Soft, nontender. No organomegaly. Bowel sounds normal. EXTREMITIES: No clubbing, no cyanosis. LABORATORY DATA: WBC 5.8, hemoglobin 12.8, hematocrit 38.9, platelets 240,000. Sodium 138, potassium 3.8, BUN 22, creatinine 0.8. Random sugar 137, then repeat one was 187, another sugar was 151. Troponin less than 0.01. Total protein and albumin normal. Phosphorus, magnesium, AST, ALT normal. Chest x-ray showed cardiomegaly with prominent central musculature suggestive of mild pulmonary venous congestion. EKG shows sinus rhythm with PAC and Q in III and aVF suggestive of old inferior wall [place]. DIAGNOSES: 1. Hypertensive cardiovascular disease, congestive heart failure. 2. Altered mental status. 3. Diabetes mellitus type 2. 4. Degenerative joint disease. 5. Obesity. PLAN: The patient on losartan 50 mg daily, potassium 20 mEq daily, Lasix 20 mg IV daily. We will add Coreg 3.125 p.o. b.i.d., do an echocardiogram. We will also do TSH and lipid profile. We will monitor intake and output and we will follow closely with you. Roland Tucker MD
[2018-07-28 06:55] LABS: BLOOD UREA NITROGEN 20 mg/dL (7-21); CALCIUM 10.3 mg/dL (8.4-10.5); GFR NON-AFRICAN AMERICAN > 60; HDL CHOLESTEROL 42 mg/dL (29-60)
[2018-07-28 07:05] LABS: LDL CHOLESTEROL 152 mg/dL (0-129)
--- NOTE | 2018-07-28 08:29 | CON ---
DATE: 07/27/2018 NEUROLOGY CONSULT CHIEF COMPLAINT: Transient confusion. HISTORY OF PRESENT ILLNESS: This is an 83-year-old woman with history of hypertension, hypercalcemia with degenerative arthritis, hyperparathyroidism, type 2 diabetes mellitus, CHF, who came with increasing leg swelling, shortness of breath, inability to walk and some mild transient confusion. Currently, lower extremity, she has lower extremity swelling, mild shortness of breath, no focal weakness seen on examination. She is cognitively mildly slow. CAT scan of the head showed no acute intracranial abnormalities, just chronic ischemic changes, mild generalized atrophy. PAST MEDICAL HISTORY: Type 2 diabetes mellitus, CHF, hyperparathyroidism with hypercalcemia, degenerative joint disease. PAST SURGICAL HISTORY: Appendectomy and cholecystectomy. ALLERGIES: NO KNOWN DRUG ALLERGIES. MEDICATIONS: Reviewed by nurse's reconciliation sheet. SOCIAL HISTORY: No illicit drug use, smoking or EtOH abuse. The patient needs some assistance with her ADLs. REVIEW OF SYSTEMS: Fourteen-point review of systems is as per HPI. PHYSICAL EXAMINATION: VITAL SIGNS: Temperature of 98, pulse rate of , blood pressure of 153/89, respiratory rate of 18, oxygen saturation on room air. HEENT: Atraumatic, normocephalic. PERRLA. Extraocular muscles intact. NECK: Supple. No JVD. No adenopathy noted. LUNGS: Decreased breath sounds bilaterally. HEART: S1 and S2. Normal rate and rhythm. No murmurs, rubs or gallops. ABDOMEN: Soft, obese, nontender. Bowel sounds present. EXTREMITIES: No clubbing, has 2 to 3+ edema up to the knees bilaterally. NEUROLOGIC: The patient is alert and oriented to person and place. Recall after five minutes is 0/3. Poor attention span, slow thought process, Judgement is intact. Speech is fluent without any errors. No aphasia noted. Cranial nerves II through XII were intact. Motor exam: Moves all extremities equally. No pronator drift seen. Sensory: Decreased light touch and pinprick up to the calves bilaterally. Decreased vibration at the toes. DTRs are 2+ throughout and 1 at both knees and absent at the ankles. Coordination: [id number] intact. No dysmetria noted. Gait is deferred for now. 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 RECOMMENDATIONS: At this time, we recommend: 1. Cardiology evaluation for CHF. 2. Monitor electrolytes and correct accordingly. 3. Keep blood pressure between 140 to 180. 4. Keep systolic blood pressure to 130s to 140s, diastolic 70s to 80s. 5. PT/OT recommend some mild subacute rehab. Once again, thank you for this consult. David Pina MD
[2018-07-28] MEDS: Insulin Reg-LOW-Coverage SC SCH ×4 (08:50→22:00)
[2018-07-28] MEDS: Potassium Chloride 20 mEq ER Tab PO SCH (08:50)
--- NOTE | 2018-07-28 09:14 | CP.PCM.PN ---
Subjective - Date & Time of Evaluation Date of Evaluation: 07/28/18 Time of Evaluation: 06:50 - Subjective Subjective: Awake, alert, no distress Reason for consultation and follow up: Cardiac evaluation of shortness of breath, history of congestive heart failure, hypertension ,diabetes, Seen and examined by me and Dr. Mckenzie Objective - Vital Signs/Intake and Output Vital Signs (last 24 hours): Temp Pulse Resp BP Pulse Ox 98.2 F 94 H 20 156/84 H 96 07/28/18 05:36 07/28/18 05:36 07/28/18 05:36 07/28/18 05:36 07/28/18 05:36 Intake and Output: 07/28/18 07/28/18 06:59 18:59 Intake Total 1340 Output Total 3450 Balance -2110 - Medications Medications: Current Medications Carvedilol (Coreg) 3.125 mg PO BID [facility] Last Admin: 07/27/18 17:18 Dose: 3.125 mg Furosemide (Lasix) 20 mg IVP DAILY [facility] Last Admin: 07/27/18 10:15 Dose: 20 mg Insulin Human Regular (Humulin R Low) 0 units SC ACHS [facility]; Protocol Last Admin: 07/28/18 08:50 Dose: 1 units Losartan Potassium (Cozaar) 50 mg PO DAILY [facility] Last Admin: 07/27/18 10:13 Dose: 50 mg Potassium Chloride (K-Dur 20 Meq Er Tab) 20 meq PO BRK [facility] Last Admin: 07/28/18 08:50 Dose: 20 meq - Labs Labs: 07/27/18 06:00 07/28/18 06:00 PT 11.8 SECONDS (9.4-12.5) 07/26/18 14:12 INR 1.03 07/26/18 14:12 APTT 25.9 Seconds (25.1-36.5) 07/26/18 14:12 - Constitutional Appears: Non-toxic, No Acute Distress - Head Exam Head Exam: NORMAL INSPECTION, NORMOCEPHALIC - Eye Exam Eye Exam: Normal appearance Pupil Exam: NORMAL ACCOMODATION - ENT Exam ENT Exam: Mucous Membranes Moist - Respiratory Exam Respiratory Exam: Decreased Breath Sounds, Clear to Ausculation Bilateral, NORMAL BREATHING PATTERN - Cardiovascular Exam Cardiovascular Exam: REGULAR RHYTHM, +S1, +S2 Additional comments: Telemetry NSR 70's - GI/Abdominal Exam GI & Abdominal Exam: Soft, Normal Bowel Sounds - Extremities Exam Extremities Exam: Full ROM - Neurological Exam Neurological Exam: Alert, Awake - Psychiatric Exam Psychiatric exam: Normal Affect, Normal Mood - Skin Skin Exam: Dry, Normal Color, Warm Assessment and Plan - Assessment and Plan (Free Text) Assessment: An 83 year old female obese, who came in to the ER due to shortness of breath and leg swelling. History of congestive heart failure, hypertension ,diabetes, depression, cellulitis,appendectomy,cholecystectomy, right foot bunion with surgery, hyperparathyroidism, hypercalcemia, degenerative joint disease, Alzheimer's disease. Significant memory deficit, more confuse. Denies chest pain. Troponin normal. EKG showed NSR with APC's, old inferior wall [place], Chest X ray showed cardiomegaly, mild pulmonary venous congestion. Exacerbation of congestive heart failure. Plan: Denies shortness of breath, no distress Heart rate controlled For Echo today to evaluate LV function On Coreg 3.125mg BID, Lasix 20 mg daily, Cozaar 50 mg daily Kdur 20 meq daily. Will start low dose Aspirin Will start lovenox for DVT prophylaxis Elevated lipid panel, will start Lipitor Xopenex treatment for shortness of breath Continue current treatment Will order stress test for tomorrow Will follow up Further recommendations during hospital course Will follow up Plan and treatment discussed with
[2018-07-28] MEDS ORDERED: Levalbuterol 0.63 MG/3 ML Inhal Soln UD IH PRN (09:36)
[2018-07-28] MEDS: Enoxaparin 30 mg Syringe SC SCH ×2 (10:14→21:59)
--- NOTE | 2018-07-28 11:49 | CP.PCM.PN ---
Subjective - Date & Time of Evaluation Date of Evaluation: 07/28/18 Time of Evaluation: 09:30 - Subjective Subjective: resting comfortably, NAD, denies chest pain, no SOB Objective - Vital Signs/Intake and Output Vital Signs (last 24 hours): Temp Pulse Resp BP Pulse Ox 98.2 F 78 20 133/65 96 07/28/18 05:36 07/28/18 10:06 07/28/18 05:36 07/28/18 10:06 07/28/18 05:36 Intake and Output: 07/28/18 07/28/18 06:59 18:59 Intake Total 1340 Output Total 3450 Balance -2110 - Medications Medications: Current Medications Aspirin (Ecotrin) 81 mg PO DAILY [facility] Last Admin: 07/28/18 10:14 Dose: 81 mg Calcitonin [place] (Miacalcin) 200 intlu NS DAILY [facility] Carvedilol (Coreg) 3.125 mg PO BID [facility] Last Admin: 07/28/18 10:05 Dose: 3.125 mg Enoxaparin Sodium (Lovenox) 30 mg SC Q12H [facility]; Protocol Last Admin: 07/28/18 10:14 Dose: 30 mg Furosemide (Lasix) 20 mg IVP DAILY [facility] Last Admin: 07/28/18 10:04 Dose: 20 mg Insulin Human Regular (Humulin R Low) 0 units SC ACHS [facility]; Protocol Last Admin: 07/28/18 08:50 Dose: 1 units Levalbuterol HCl (Xopenex) 0.63 mg IH [id number] PRN PRN Reason: Shortness of Breath Losartan Potassium (Cozaar) 50 mg PO DAILY [facility] Last Admin: 07/28/18 10:06 Dose: 50 mg Potassium Chloride (K-Dur 20 Meq Er Tab) 20 meq PO BRK [facility] Last Admin: 07/28/18 08:50 Dose: 20 meq - Labs Labs: 07/27/18 06:00 07/28/18 06:00 PT 11.8 SECONDS (9.4-12.5) 07/26/18 14:12 INR 1.03 07/26/18 14:12 APTT 25.9 Seconds (25.1-36.5) 07/26/18 14:12 - Respiratory Exam Respiratory Exam: Rales - Cardiovascular Exam Cardiovascular Exam: REGULAR RHYTHM - GI/Abdominal Exam GI & Abdominal Exam: Soft, Normal Bowel Sounds - Extremities Exam Extremities Exam: Pedal Edema - Neurological Exam Neurological Exam: Abnormal Gait, Altered, Awake - Skin Skin Exam: Dry, Warm Assessment and Plan (1) CHF exacerbation Status: Acute (2) Alzheimer disease Status: Chronic (3) Type II diabetes mellitus Status: Chronic (4) Hyperparathyroidism Status: Chronic - Assessment and Plan (Free Text) Plan: continue present tx/PT eval/ECHO pending/SW for DC planning-MIRNA
[2018-07-28] MEDS: Calcitonin 200 Int Units/Inh Nasal Spray (3.7 ml) NS SCH (13:28)
--- NOTE | 2018-07-28 15:40 | PN ---
DATE: 07/28/2018 LOCATION: The patient in room 275, bed 1. REASON FOR CONSULTATION: Congestive heart failure. SUBJECTIVE: The patient was admitted with swelling on the legs and shortness of breath. The patient has known hypertension, diabetes, and arthritis. The patient yesterday had also a transient episode of confusion, but she is more alert today. Denies any chest pain. She states breathing is better. Denies palpitation. The patient still has swelling on the legs. PHYSICAL EXAMINATION: LUNGS: Few bilateral rales. CARDIOVASCULAR: S1 and S2. IMAGING STUDIES: Chest x-ray showed mild congestive changes. DIAGNOSES: Congestive heart failure, hypertensive cardiovascular disease, transient episode of confusion, diabetes mellitus type 2, degenerative joint disease, obesity. PLAN: The patient's echo has been already requested. We will also request IV Lexiscan stress test. The patient is more alert now and the patient will continue losartan 50 daily. I also started her on Coreg 3.125 twice daily, aspirin 81 daily, potassium 20 daily, furosemide 20 IV daily, Lovenox 30 mg subcutaneous every 12 hours, Xopenex and nebulizer therapy. We will repeat chest x-ray tomorrow to see improvement of CHF and we will monitor and follow with you. Roland Tucker MD
--- NOTE | 2018-07-28 16:32 | CARD ---
APPROVED REPORT Date of service: 07/28/2018 EXAM: Two-dimensional and M-mode echocardiogram with Doppler and color Doppler. INDICATION Hypertension/HCVD Congestive Heart Failure 2D DIMENSIONS Left Atrium (2D)3.8 (1.6-4.0cm)IVSd1.3 (0.7-1.1cm) LVDd4.0 (3.9-5.9cm)PWd1.4 (0.7-1.1cm) LVDs3.0 (2.5-4.0cm)FS (%) 25.3 % LVEF (%)50.4 (>50%) M-Mode DIMENSIONS Aortic Root3.70 (2.2-3.7cm)Aortic Cusp Exc.2.10 (1.5-2.0cm) Aortic Valve AoV Peak Qgayrpgs497.0cm/Iftikhar Peak GR.9mmHgLVOT Peak Gtthnjda84.3cm/s LVOT VTI16.70cm Mitral Valve MV E Pejrsblq89.3cm/sMV A Anhrrqvy17.0cm/sE/A ratio0.6 TDI Lateral E' Peak V6.14cm/sMedial E' Peak V5.85cm/sE/Lateral E'8.2 E/Medial E'8.6 Pulmonary Valve PV Peak Dhrvvohg69.5cm/sPV Peak Grad.3mmHg Tricuspid Valve TR Peak Oxfzihoj109kf/sRAP RJZORVRH04rcAjBA Peak Gr.28mmHg [id number] LEFT VENTRICLE The left ventricle is normal size. There is mild concentric left ventricular hypertrophy. Proximal septal thickening is noted. The left ventricular function is normal.Ef- 50-55% There is normal LV segmental wall motion. Transmitral Doppler flow pattern is Grade III-reversible restrictive diastolic dysfunction. No left ventricle thrombus noted on this study. There is no ventricular septal defect visualized. There is no left ventricular aneurysm. There is no mass noted in the left ventricle. RIGHT VENTRICLE The right ventricle is normal size. There is normal right ventricular wall thickness. The right ventricular systolic function is normal. ATRIA The left atrium size is normal. The right atrium size is normal. The interatrial septum is intact with no evidence for an atrial septal defect. AORTIC VALVE The aortic valve is calcified but opens well. There is trace to mild aortic regurgitation. There is no aortic valvular stenosis. There is no aortic valvular vegetation. MITRAL VALVE The mitral valve is thickened but opens well. Mitral regurgitation is trace. There is no mitral valve stenosis. There is no evidence of mitral valve prolapse. TRICUSPID VALVE The tricuspid valve leaflets are thickened , but open well. There is trace to mild tricuspid regurgitation.RVSP-38 mmof Hg. There is no tricuspid valve stenosis. There is no tricuspid valve prolapse or vegetation. PULMONIC VALVE The pulmonary valve is normal in structure. There is trace pulmonic valvular regurgitation. There is no pulmonic valvular stenosis. GREAT VESSELS The aortic root is normal in size. The ascending aorta is normal in size. The pulmonary artery is normal. The IVC is normal in size and collapses >50% with inspiration. PERICARDIAL EFFUSION There is no pleural effusion. There is no pericardial effusion. <Conclusion> Normal chamber Size. EF-50-55% There is trace to mild aortic regurgitation. Mitral regurgitation is trace. There is trace to mild tricuspid regurgitation.RVSP-38 mmof Hg. There is trace pulmonic valvular regurgitation. No vegetation or thrombus noted.
[2018-07-28 18:03] LABS: BASO # 0.02 K/mm3 (0.0-2.0); BASO % 0.2 % (0.0-3.0); EOS # 0.1 (0.0-0.7); EOS % 0.8 % (1.5-5.0); GRAN # 7.39 (1.4-6.5); GRAN % 69.6 % (50.0-68.0); HEMOGLOBIN 13.2 g/dL (12.0-16.0); LYMPH # 2.3 (1.2-3.4); LYMPH % 21.7 % (22.0-35.0); MEAN CELL VOLUME 90.4 fl (80.0-105.0); MEAN CORPUSCULAR HEMOGLOBIN 30.2 pg (25.0-35.0); MEAN CORPUSCULAR HGB CONC 33.4 g/dl (31.0-37.0); MEAN PLATELET VOLUME 10.3 fl (7.0-11.0); MONO # 0.8 (0.1-0.6); MONO % 7.7 % (1.0-6.0); RBC 4.37 10^6/uL (3.5-6.1); RED CELL DISTRIBUTION WIDTH 14.2 % (11.5-14.5); WHITE BLOOD COUNT 10.6 10^3/uL (4.5-11.0)
[2018-07-28 18:08] LABS: ALB/GLOB RATIO 1.2 (1.1-1.8); ALBUMIN 4.1 g/dL (3.0-4.8); ALT/SGPT 27 U/L (7-56); AST/SGOT 20 U/L (14-36); BLOOD UREA NITROGEN 21 mg/dL (7-21); CALCIUM 10.3 mg/dL (8.4-10.5); GFR NON-AFRICAN AMERICAN 60
--- NOTE | 2018-07-28 18:18 | RAD ---
Date of service: 07/28/2018 HISTORY: r/o active disease COMPARISON: 07/26/2018 FINDINGS: LUNGS: No active pulmonary disease. PLEURA: No significant pleural effusion identified, no pneumothorax apparent. CARDIOVASCULAR: No radiographic findings to suggest acute or significant cardiovascular disease. Atherosclerotic calcifications identified primarily aortic arch. OSSEOUS STRUCTURES: No significant abnormalities. VISUALIZED UPPER ABDOMEN: Normal. OTHER FINDINGS: None. IMPRESSION: No active disease. No significant interval change compared to the prior examination(s).
[2018-07-28] MEDS ORDERED: cefTRIAXone 1 gm 1 GM/100 ML BAG IVPB SCH (18:37)
[2018-07-28] MEDS ORDERED: Vancomycin 2 GM in Sodium Chloride 0.9% 500 ML IVPB ONE (21:27)
[2018-07-28] MEDS ORDERED: levoFLOXacin 500 mg in D5W 500 MG/100 ML BAG IVPB ONE (21:30)
[2018-07-28] MEDS: Meropenem IV 1 gm in NS 1 GM/50 ML BAG IVPB SCH (22:00)
[2018-07-29 00:02] LABS: URINE BILIRUBIN NEGATIVE (NEGATIVE); URINE BLOOD NEGATIVE (NEGATIVE); URINE GLUCOSE (UA) NEGATIVE (NEGATIVE); URINE LEUKOCYTE ESTERASE SMALL Leu/uL (NEGATIVE); URINE PROTEIN NEGATIVE mg/dL (<30 mg/dL); URINE UROBILINOGEN 0.2 E.U./dL (<1 E.U./dL)
[2018-07-29 00:05] LABS: URINE APPEARANCE CLEAR (CLEAR); URINE COLOR YELLOW (YELLOW)
[2018-07-29 00:11] LABS: URINE BACTERIA TRACE /hpf; URINE RBC 0 - 2 /hpf (0-2)
[2018-07-29 00:12] LABS: URINE AMORPHOUS SEDIMENT SMALL /hpf
--- NOTE | 2018-07-29 07:46 | CP.PCM.PN ---
Subjective - Date & Time of Evaluation Date of Evaluation: 07/29/18 Time of Evaluation: 06:35 - Subjective Subjective: Awake, alert, no distress,denies chest pain Reason for consultation and follow up: Cardiac evaluation of shortness of breath, history of congestive heart failure, hypertension ,diabetes, Seen and examined by me and Dr. Mckenzie Objective - Vital Signs/Intake and Output Vital Signs (last 24 hours): Temp Pulse Resp BP Pulse Ox 97.8 F 80 20 157/81 H 96 07/29/18 06:00 07/29/18 06:00 07/29/18 06:00 07/29/18 06:00 07/29/18 06:00 Intake and Output: 07/29/18 07/29/18 06:59 18:59 Intake Total 0 750 Output Total 225 Balance -225 750 - Medications Medications: Current Medications Acetaminophen (Tylenol 325mg Tab) 650 mg PO Q6H PRN PRN Reason: Pain/Fever >100.4 F Last Admin: 07/28/18 17:45 Dose: 650 mg Aspirin (Ecotrin) 81 mg PO DAILY [facility] Last Admin: 07/28/18 10:14 Dose: 81 mg Atorvastatin Calcium (Lipitor) 10 mg PO DIN [facility] Last Admin: 07/28/18 17:06 Dose: 10 mg Calcitonin [place] (Miacalcin) 200 intlu NS DAILY [facility] Last Admin: 07/28/18 13:28 Dose: 200 intlu Carvedilol (Coreg) 3.125 mg PO BID [facility] Last Admin: 07/28/18 17:06 Dose: 3.125 mg Enoxaparin Sodium (Lovenox) 30 mg SC Q12H [facility]; Protocol Last Admin: 07/28/18 21:59 Dose: 30 mg Furosemide (Lasix) 20 mg IVP DAILY [facility] Last Admin: 07/28/18 10:04 Dose: 20 mg Meropenem (Merrem Iv 1 Gm Premix) 1 gm in 50 mls @ 100 mls/hr IVPB Q12 [facility]; Protocol Stop: 08/06/18 22:01 Last Admin: 07/28/18 22:00 Dose: 100 mls/hr Levofloxacin/Dextrose (Levaquin 250mg) 250 mg in 50 mls @ 50 mls/hr IVPB Q24H [facility] Insulin Human Regular (Humulin R Low) 0 units SC ACHS [facility]; Protocol Last Admin: 07/28/18 22:00 Dose: Not Given Levalbuterol HCl (Xopenex) 0.63 mg IH [id number] PRN PRN Reason: Shortness of Breath Losartan Potassium (Cozaar) 50 mg PO DAILY [facility] Last Admin: 07/28/18 10:06 Dose: 50 mg Potassium Chloride (K-Dur 20 Meq Er Tab) 20 meq PO BRK [facility] Last Admin: 07/28/18 08:50 Dose: 20 meq - Labs Labs: 07/28/18 17:54 07/28/18 17:54 PT 11.8 SECONDS (9.4-12.5) 07/26/18 14:12 INR 1.03 07/26/18 14:12 APTT 25.9 Seconds (25.1-36.5) 07/26/18 14:12 - Constitutional Appears: Non-toxic, No Acute Distress - Head Exam Head Exam: NORMAL INSPECTION, NORMOCEPHALIC - Eye Exam Eye Exam: Normal appearance Pupil Exam: NORMAL ACCOMODATION - ENT Exam ENT Exam: Mucous Membranes Moist - Respiratory Exam Respiratory Exam: Decreased Breath Sounds, NORMAL BREATHING PATTERN - Cardiovascular Exam Cardiovascular Exam: REGULAR RHYTHM, +S1, +S2 - GI/Abdominal Exam GI & Abdominal Exam: Soft, Normal Bowel Sounds - Neurological Exam Neurological Exam: Alert, Awake - Psychiatric Exam Psychiatric exam: Normal Affect, Normal Mood - Skin Skin Exam: Dry, Normal Color, Warm Assessment and Plan - Assessment and Plan (Free Text) Assessment: An 83 year old female obese, who came in to the ER due to shortness of breath and leg swelling. History of congestive heart failure, hypertension ,diabetes, depression, cellulitis,appendectomy,cholecystectomy, right foot bunion with surgery, hyperparathyroidism, hypercalcemia, degenerative joint disease, Alzheimer's disease. Significant memory deficit, more confuse. Denies chest pain. Troponin normal. EKG showed NSR with APC's, old inferior wall HI, Chest X ray showed cardiomegaly, mild pulmonary venous congestion. Exacerbation of mary beth estive heart failure.Echo done. Plan: Echo done, normal chambers, LVEF 50-55% Mild AR, trace MR, mild TR RVSP 38 mmHg, trace pulmonic valve regurgitation, no vegetation Denies shortness of breath, no distress Heart rate controlled On Coreg 3.125mg BID, Lasix 20 mg daily, Cozaar 50 mg daily Kdur 20 meq daily. ASA 81 mg daily, Lipitor 10 mg daily Continue current treatment For stress test today Will follow up Plan and treatment discussed with
[2018-07-29] MEDS: Enoxaparin 30 mg Syringe SC SCH ×2 (09:49→21:59)
[2018-07-29] MEDS: Meropenem IV 1 gm in NS 1 GM/50 ML BAG IVPB SCH ×2 (09:50→21:59)
[2018-07-29] MEDS: Potassium Chloride 20 mEq ER Tab PO SCH (09:52)
[2018-07-29] MEDS: Insulin Reg-LOW-Coverage SC SCH ×4 (09:53→21:57)
[2018-07-29] MEDS ORDERED: levoFLOXacin 250 mg in D5W 250 MG/50 ML BAG IVPB SCH (10:00)
[2018-07-29] MEDS: Calcitonin 200 Int Units/Inh Nasal Spray (3.7 ml) NS SCH (10:58)
--- NOTE | 2018-07-29 11:00 | PN ---
DATE: 07/29/2018 REASON FOR CONSULTATION: Followup, cardiac evaluation, shortness of breath, history of congestive heart failure, hypertension, and diabetes. This note is in addition to dictated by the nurse practitioner, Dorene Flores. The patient was scheduled for a stress test . The patient is very much confused, nightmares at the dinner; in the morning also the patient is confused, unable to go for a stress test. The patient had echocardiography done yesterday that revealed ejection fraction 50% to 55%, trace mitral regurgitation to mild tricuspid is 38. RECOMMENDATION: I will seek medical treatment. Continue aspirin, continue losartan, continue Coreg, continue atorvastatin. We will follow with you. Thank you Dr. Robles for providing us the opportunity in taking care of your patient, Bekah Carty. We will follow with you. Roland Mckenzie MD
--- NOTE | 2018-07-29 11:15 | CT ---
Date of service: 07/29/2018 CT chest without IV contrast Indication: fever Technique: Contiguous axial images were obtained through the chest without intravenous contrast enhancement. Sagittal and coronal reconstructions were generated and reviewed. This CT exam was performed using 1 or more of the following dose reduction techniques: Automated exposure control, adjustment of the MAA and/or kV according to patient size, and/or use of iterative reconstruction technique. Radiation dose (DLP): 666.09 MGy-cm. Comparison: Chest x-ray performed 07/28/18 Findings: Visualized portions of the inferior thyroid gland appear unremarkable. The unenhanced mediastinal and hilar vascular structures appear grossly unremarkable. Cardiomegaly. Coronary artery calcifications. No focal consolidation. No pleural effusion. No pneumothorax. No suspicious pulmonary nodules measuring greater than 5 mm. Small hiatal hernia/distal esophageal wall thickening. Limited visualization of the noncontrast upper abdomen demonstrates cholecystectomy clips. Degenerative changes of the osseous structures. Mild kyphosis. Impression: No focal consolidation. Cardiomegaly. Small hiatal hernia/distal esophageal wall thickening. Cholecystectomy clips.
--- NOTE | 2018-07-29 14:18 | CP.PCM.PN ---
Subjective - Date & Time of Evaluation Date of Evaluation: 07/29/18 Time of Evaluation: 10:15 - Subjective Subjective: OOB in chair, NAD, no cough' no SOB Objective - Vital Signs/Intake and Output Vital Signs (last 24 hours): Temp Pulse Resp BP Pulse Ox 99.5 F 96 H 18 153/83 H 96 07/29/18 12:00 07/29/18 12:00 07/29/18 12:00 07/29/18 12:00 07/29/18 06:00 Intake and Output: 07/29/18 07/29/18 06:59 18:59 Intake Total 0 750 Output Total 225 Balance -225 750 - Medications Medications: Current Medications Acetaminophen (Tylenol 325mg Tab) 650 mg PO Q6H PRN PRN Reason: Pain/Fever >100.4 F Last Admin: 07/28/18 17:45 Dose: 650 mg Aspirin (Ecotrin) 81 mg PO DAILY [facility] Last Admin: 07/29/18 09:55 Dose: 81 mg Atorvastatin Calcium (Lipitor) 10 mg PO DIN [facility] Last Admin: 07/28/18 17:06 Dose: 10 mg Calcitonin [place] (Miacalcin) 200 intlu NS DAILY [facility] Last Admin: 07/29/18 10:58 Dose: 200 intlu Carvedilol (Coreg) 3.125 mg PO BID [facility] Last Admin: 07/29/18 09:51 Dose: 3.125 mg Enoxaparin Sodium (Lovenox) 30 mg SC Q12H [facility]; Protocol Last Admin: 07/29/18 09:49 Dose: 30 mg Furosemide (Lasix) 20 mg IVP DAILY [facility] Last Admin: 07/29/18 09:50 Dose: 20 mg Meropenem (Merrem Iv 1 Gm Premix) 1 gm in 50 mls @ 100 mls/hr IVPB Q12 [facility]; Protocol Stop: 08/06/18 22:01 Last Admin: 07/29/18 09:50 Dose: 100 mls/hr Levofloxacin/Dextrose (Levaquin 250mg) 250 mg in 50 mls @ 50 mls/hr IVPB Q24H [facility] Last Admin: 07/29/18 10:59 Dose: 50 mls/hr Insulin Human Regular (Humulin R Low) 0 units SC ACHS [facility]; Protocol Last Admin: 07/29/18 11:52 Dose: 2 units Levalbuterol HCl (Xopenex) 0.63 mg IH [id number] PRN PRN Reason: Shortness of Breath Losartan Potassium (Cozaar) 50 mg PO DAILY [facility] Last Admin: 07/29/18 09:51 Dose: 50 mg Potassium Chloride (K-Dur 20 Meq Er Tab) 20 meq PO BRK [facility] Last Admin: 07/29/18 09:52 Dose: 20 meq - Labs Labs: 07/28/18 17:54 07/28/18 17:54 PT 11.8 SECONDS (9.4-12.5) 07/26/18 14:12 INR 1.03 07/26/18 14:12 APTT 25.9 Seconds (25.1-36.5) 07/26/18 14:12 - Respiratory Exam Respiratory Exam: Clear to Ausculation Bilateral, NORMAL BREATHING PATTERN - Cardiovascular Exam Cardiovascular Exam: REGULAR RHYTHM - GI/Abdominal Exam GI & Abdominal Exam: Soft, Normal Bowel Sounds - Extremities Exam Extremities Exam: Pedal Edema - Neurological Exam Neurological Exam: Altered - Skin Skin Exam: Dry, Warm Assessment and Plan (1) CHF exacerbation Status: Acute (2) Alzheimer disease Status: Chronic (3) Type II diabetes mellitus Status: Chronic (4) Hyperparathyroidism Status: Chronic (5) Fever Status: Acute - Assessment and Plan (Free Text) Plan: CT chest negative, continue empiric IV Abx/ID& Neuro follow-up, for DC planning
--- NOTE | 2018-07-29 14:57 | CP.PCM.CON ---
<Ruben Becker - Last Filed: 07/29/18 15:11> History of Present Illness - History of Present Illness History of Present Illness: ID Consult Note 83 year old female with past medical history of CHF, DM2, Alzheimer's disease, HTN, and hyperparathyroidism presents to the hospital after 2 days of worsening leg edema and shortness of breath. Patient appears mildly confused at times, much of medical information provided from previous medical records. Patient states there was no inciting event. Patient admits to having similar symptoms in the past. Patient states she is compliant with medication. Patient denies chest pain, shortness of breath, nausea, vomiting, diarrhea, fever, chills, numbness, tingling, dysuria. Medical hx: CHF, DM2, Alzheimer's disease, HTN, and hyperparathyroidism Surgical Hx: Appendectomy, cholecystectomy Family hx: Denies Allergies: Shellfish Social Hx: Denies alcohol, tobacco, or illicit drug use Medications: Reviewed, as per MAR Review of Systems - Review of Systems Review of Systems: 12 point ROS as per HPI, otherwise negative Past Patient History - Infectious Disease Hx of Infectious Diseases: None - Past Social History Smoking Status: Never Smoked - CARDIAC Hx Cardiac Disorders: Yes Hx Congestive Heart Failure: Yes Hx Hypertension: Yes - PULMONARY Hx Respiratory Disorders: No - NEUROLOGICAL Hx Neurological Disorder: Yes Hx Alzheimer's Disease: Yes - HEENT Hx HEENT Problems: Yes Other/Comment: Wears glasses - RENAL Hx Chronic Kidney Disease: No - ENDOCRINE/METABOLIC Hx Diabetes Mellitus Type 2: Yes - HEMATOLOGICAL/ONCOLOGICAL Hx Blood Disorders: No - INTEGUMENTARY Hx Dermatological Problems: Yes Other/Comment: ble +2 pitting edema skin discolorations ble and redness, redness to top of left foot ad toes, redness to toes r ft, cellulitis - MUSCULOSKELETAL/RHEUMATOLOGICAL Hx Musculoskeletal Disorders: Yes Hx Falls: No Hx Osteoporosis: Yes Hx Unsteady Gait: Yes (cane/walker) - GASTROINTESTINAL Hx Gastrointestinal Disorders: No - GENITOURINARY/GYNECOLOGICAL Hx Genitourinary Disorders: Yes Hx Incontinence: Yes - PSYCHIATRIC Hx Psychophysiologic Disorder: Yes Hx Depression: Yes Hx Substance Use: No - SURGICAL HISTORY Hx Surgeries: Yes Hx Appendectomy: Yes Hx Cholecystectomy: Yes Hx Orthopedic Surgery: Yes (Bunion R Foot) - ANESTHESIA Hx Anesthesia: Yes Hx Anesthesia Reactions: No Hx Malignant Hyperthermia: No Meds Allergies/Adverse Reactions: Allergies Allergy/AdvReac Type Severity Reaction Status Date / Time shellfish derived Allergy ANAPHYLAXIS Verified 12/28/17 14:31 - Medications Medications: Current Medications Acetaminophen (Tylenol 325mg Tab) 650 mg PO Q6H PRN PRN Reason: Pain/Fever >100.4 F Last Admin: 07/28/18 17:45 Dose: 650 mg Aspirin (Ecotrin) 81 mg PO DAILY [facility] Last Admin: 07/29/18 09:55 Dose: 81 mg Atorvastatin Calcium (Lipitor) 10 mg PO DIN [facility] Last Admin: 07/28/18 17:06 Dose: 10 mg Calcitonin [place] (Miacalcin) 200 intlu NS DAILY [facility] Last Admin: 07/29/18 10:58 Dose: 200 intlu Carvedilol (Coreg) 3.125 mg PO BID [facility] Last Admin: 07/29/18 09:51 Dose: 3.125 mg Enoxaparin Sodium (Lovenox) 30 mg SC Q12H [facility]; Protocol Last Admin: 07/29/18 09:49 Dose: 30 mg Furosemide (Lasix) 20 mg IVP DAILY [facility] Last Admin: 07/29/18 09:50 Dose: 20 mg Meropenem (Merrem Iv 1 Gm Premix) 1 gm in 50 mls @ 100 mls/hr IVPB Q12 [facility]; Protocol Stop: 08/06/18 22:01 Last Admin: 07/29/18 09:50 Dose: 100 mls/hr Levofloxacin/Dextrose (Levaquin 250mg) 250 mg in 50 mls @ 50 mls/hr IVPB Q24H [facility] Last Admin: 07/29/18 10:59 Dose: 50 mls/hr Insulin Human Regular (Humulin R Low) 0 units SC ACHS [facility]; Protocol Last Admin: 07/29/18 11:52 Dose: 2 units Levalbuterol HCl (Xopenex) 0.63 mg IH [id number] PRN PRN Reason: Shortness of Breath Losartan Potassium (Cozaar) 50 mg PO DAILY [facility] Last Admin: 07/29/18 09:51 Dose: 50 mg Potassium Chloride (K-Dur 20 Meq Er Tab) 20 meq PO BRK [facility] Last Admin: 07/29/18 09:52 Dose: 20 meq Physical Exam - Constitutional Appears: Non-toxic, No Acute Distress - Head Exam Head Exam: ATRAUMATIC, NORMAL INSPECTION, NORMOCEPHALIC - Eye Exam Eye Exam: Normal appearance - ENT Exam ENT Exam: Mucous Membranes Moist - Respiratory Exam Respiratory Exam: Clear to Auscultation Bilateral, NORMAL BREATHING PATTERN. absent: Rales, Rhonchi, Wheezes - Cardiovascular Exam Cardiovascular Exam: RRR, +S1, +S2 - GI/Abdominal Exam GI & Abdominal Exam: Normal Bowel Sounds, Soft. absent: Tenderness - Extremities Exam Extremities exam: Positive for: calf tenderness. Negative for: pedal edema - Neurological Exam Neurological exam: Alert - Psychiatric Exam Additional comments: Confused, not answering questions appropriately - Skin Skin Exam: Dry, Normal Color, Warm Results - Vital Signs Recent Vital Signs: Last Vital Signs Temp 99.5 F 07/29/18 12:00 Pulse 96 H 07/29/18 12:00 Resp 18 07/29/18 12:00 BP 153/83 H 07/29/18 12:00 Pulse Ox 96 07/29/18 06:00 - Labs Result Diagrams: 07/28/18 17:54 07/28/18 17:54 Labs: Laboratory Results - last 24 hr 07/28/18 07/28/18 07/28/18 15:59 17:54 17:54 WBC 10.6 D RBC 4.37 Hgb 13.2 Hct 39.5 MCV 90.4 MCH 30.2 MCHC 33.4 RDW 14.2 Plt Count 232 MPV 10.3 Gran % 69.6 H Lymph % (Auto) 21.7 L [place] % (Auto) 7.7 H Eos % (Auto) 0.8 L Baso % (Auto) 0.2 Gran # 7.39 H Lymph # (Auto) 2.3 [place]son # (Auto) 0.8 H Eos # (Auto) 0.1 Baso # (Auto) 0.02 Sodium 136 Potassium 4.3 Chloride 98 Carbon Dioxide 31 Anion Gap 12 BUN 21 Creatinine 0.9 Est GFR ( Amer) > 60 Est GFR (Non-Af Amer) 60 POC Glucose (mg/dL) 204 H Random Glucose 187 H Calcium 10.3 Total Bilirubin 0.7 AST 20 ALT 27 Alkaline Phosphatase 78 Total Protein 7.3 Albumin 4.1 Globulin 3.3 Albumin/Globulin Ratio 1.2 Procalcitonin Urine Color Urine Appearance Urine pH Ur Specific [place] Urine Protein Urine Glucose (UA) Urine Ketones Urine Blood Urine Nitrate Urine Bilirubin Urine Urobilinogen Ur Leukocyte Esterase Urine RBC Urine WBC Ur Epithelial Cells Amorphous Sediment Urine Bacteria Influenza Typ A,B (EIA) Ur L.pneumophila Ag 07/28/18 07/28/18 07/28/18 19:10 21:30 21:35 WBC RBC Hgb Hct MCV MCH MCHC RDW Plt Count MPV Gran % Lymph % (Auto) [place] % (Auto) Eos % (Auto) Baso % (Auto) Gran # Lymph # (Auto) [place] # (Auto) Eos # (Auto) Baso # (Auto) Sodium Potassium Chloride Carbon Dioxide Anion Gap BUN Creatinine Est GFR ( Amer) Est GFR (Non-Af Amer) POC Glucose (mg/dL) 178 H Random Glucose Calcium Total Bilirubin AST ALT Alkaline Phosphatase Total Protein Albumin Globulin Albumin/Globulin Ratio Procalcitonin < 0.05 L Urine Color Urine Appearance Urine pH Ur Specific [place] Urine Protein Urine Glucose (UA) Urine Ketones Urine Blood Urine Nitrate Urine Bilirubin Urine Urobilinogen Ur Leukocyte Esterase Urine RBC Urine WBC Ur Epithelial Cells Amorphous Sediment Urine Bacteria Influenza Typ A,B (EIA) Negative for flu a/b Ur L.pneumophila Ag 07/28/18 07/28/18 07/28/18 22:56 23:17 23:17 WBC RBC Hgb Hct MCV MCH MCHC RDW Plt Count MPV Gran % Lymph % (Auto) [place] % (Auto) Eos % (Auto) Baso % (Auto) Gran # Lymph # (Auto) [place] # (Auto) Eos # (Auto) Baso # (Auto) Sodium Potassium Chloride Carbon Dioxide Anion Gap BUN Creatinine Est GFR ( Amer) Est GFR (Non-Af Amer) POC Glucose (mg/dL) Random Glucose Calcium Total Bilirubin AST ALT Alkaline Phosphatase Total Protein Albumin Globulin Albumin/Globulin Ratio Procalcitonin Urine Color Yellow Urine Appearance Clear Urine pH 6.0 Ur Specific [place] 1.025 Urine Protein Negative Urine Glucose (UA) Negative Urine Ketones Negative Urine Blood Negative Urine Nitrate Negative Urine Bilirubin Negative Urine Urobilinogen 0.2 Ur Leukocyte Esterase Small H Urine RBC 0 - 2 Urine WBC 1 - 3 Ur Epithelial Cells 3 - 4 Amorphous Sediment Small Urine Bacteria Trace Influenza Typ A,B (EIA) Negative for flu a/b Ur L.pneumophila Ag Negative 07/29/18 07/29/18 07:37 11:30 WBC RBC Hgb Hct MCV MCH MCHC RDW Plt Count MPV Gran % Lymph % (Auto) [place] % (Auto) Eos % (Auto) Baso % (Auto) Gran # Lymph # (Auto) [place] # (Auto) Eos # (Auto) Baso # (Auto) Sodium Potassium Chloride Carbon Dioxide Anion Gap BUN Creatinine Est GFR ( Amer) Est GFR (Non-Af Amer) POC Glucose (mg/dL) 125 H 246 H Random Glucose Calcium Total Bilirubin AST ALT Alkaline Phosphatase Total Protein Albumin Globulin Albumin/Globulin Ratio Procalcitonin Urine Color Urine Appearance Urine pH Ur Specific [place] Urine Protein Urine Glucose (UA) Urine Ketones Urine Blood Urine Nitrate Urine Bilirubin Urine Urobilinogen Ur Leukocyte Esterase Urine RBC Urine WBC Ur Epithelial Cells Amorphous Sediment Urine Bacteria Influenza Typ A,B (EIA) Ur L.pneumophila Ag Assessment & Plan - Assessment and Plan (Free Text) Plan: CHF exacerbation R/O atypical pneumonia R/O DVT Hx of HTN Hx of DM2 Hx of hyperparathyroidism Hx of Alzheimer's dementia Plan: CT chest negative for consolidations or pneumonia Patient on Merrem and Levaquin, will continue Influenza negative Follow cultures Lower extremity US ordered to rule out DVT Continue current medical management Rosita, PGY-3 <Keyon Motta S - Last Filed: 07/29/18 15:53> Meds - Medications Medications: Current Medications Acetaminophen (Tylenol 325mg Tab) 650 mg PO Q6H PRN PRN Reason: Pain/Fever >100.4 F Last Admin: 07/28/18 17:45 Dose: 650 mg Aspirin (Ecotrin) 81 mg PO DAILY [facility] Last Admin: 07/29/18 09:55 Dose: 81 mg Atorvastatin Calcium (Lipitor) 10 mg PO DIN [facility] Last Admin: 07/28/18 17:06 Dose: 10 mg Calcitonin [place] (Miacalcin) 200 intlu NS DAILY [facility] Last Admin: 07/29/18 10:58 Dose: 200 intlu Carvedilol (Coreg) 3.125 mg PO BID [facility] Last Admin: 07/29/18 09:51 Dose: 3.125 mg Enoxaparin Sodium (Lovenox) 30 mg SC Q12H [facility]; Protocol Last Admin: 07/29/18 09:49 Dose: 30 mg Furosemide (Lasix) 20 mg IVP DAILY [facility] Last Admin: 07/29/18 09:50 Dose: 20 mg Meropenem (Merrem Iv 1 Gm Premix) 1 gm in 50 mls @ 100 mls/hr IVPB Q12 [facility]; Protocol Stop: 08/06/18 22:01 Last Admin: 07/29/18 09:50 Dose: 100 mls/hr Levofloxacin/Dextrose (Levaquin 250mg) 250 mg in 50 mls @ 50 mls/hr IVPB Q24H [facility] Last Admin: 07/29/18 10:59 Dose: 50 mls/hr Insulin Human Regular (Humulin R Low) 0 units SC ACHS [facility]; Protocol Last Admin: 07/29/18 11:52 Dose: 2 units Levalbuterol HCl (Xopenex) 0.63 mg IH [id number] PRN PRN Reason: Shortness of Breath Losartan Potassium (Cozaar) 50 mg PO DAILY [facility] Last Admin: 07/29/18 09:51 Dose: 50 mg Potassium Chloride (K-Dur 20 Meq Er Tab) 20 meq PO BRK [facility] Last Admin: 07/29/18 09:52 Dose: 20 meq Results - Vital Signs Recent Vital Signs: Last Vital Signs Temp 99.5 F 07/29/18 12:00 Pulse 96 H 07/29/18 12:00 Resp 18 07/29/18 12:00 BP 153/83 H 07/29/18 12:00 Pulse Ox 96 07/29/18 06:00 - Labs Result Diagrams: 07/28/18 17:54 07/28/18 17:54 Labs: Laboratory Results - last 24 hr 07/28/18 07/28/18 07/28/18 15:59 17:54 17:54 WBC 10.6 D RBC 4.37 Hgb 13.2 Hct 39.5 MCV 90.4 MCH 30.2 MCHC 33.4 RDW 14.2 Plt Count 232 MPV 10.3 Gran % 69.6 H Lymph % (Auto) 21.7 L [place] % (Auto) 7.7 H Eos % (Auto) 0.8 L Baso % (Auto) 0.2 Gran # 7.39 H Lymph # (Auto) 2.3 [place] # (Auto) 0.8 H Eos # (Auto) 0.1 Baso # (Auto) 0.02 Sodium 136 Potassium 4.3 Chloride 98 Carbon Dioxide 31 Anion Gap 12 BUN 21 Creatinine 0.9 Est GFR ( Amer) > 60 Est GFR (Non-Af Amer) 60 POC Glucose (mg/dL) 204 H Random Glucose 187 H Calcium 10.3 Total Bilirubin 0.7 AST 20 ALT 27 Alkaline Phosphatase 78 Total Protein 7.3 Albumin 4.1 Globulin 3.3 Albumin/Globulin Ratio 1.2 Procalcitonin Urine Color Urine Appearance Urine pH Ur Specific [place] Urine Protein Urine Glucose (UA) Urine Ketones Urine Blood Urine Nitrate Urine Bilirubin Urine Urobilinogen Ur Leukocyte Esterase Urine RBC Urine WBC Ur Epithelial Cells Amorphous Sediment Urine Bacteria Influenza Typ A,B (EIA) Ur L.pneumophila Ag 07/28/18 07/28/18 07/28/18 19:10 21:30 21:35 WBC RBC Hgb Hct MCV MCH MCHC RDW Plt Count MPV Gran % Lymph % (Auto) [place] % (Auto) Eos % (Auto) Baso % (Auto) Gran # Lymph # (Auto) [place] # (Auto) Eos # (Auto) Baso # (Auto) Sodium Potassium Chloride Carbon Dioxide Anion Gap BUN Creatinine Est GFR ( Amer) Est GFR (Non-Af Amer) POC Glucose (mg/dL) 178 H Random Glucose Calcium Total Bilirubin AST ALT Alkaline Phosphatase Total Protein Albumin Globulin Albumin/Globulin Ratio Procalcitonin < 0.05 L Urine Color Urine Appearance Urine pH Ur Specific [place] Urine Protein Urine Glucose (UA) Urine Ketones Urine Blood Urine Nitrate Urine Bilirubin Urine Urobilinogen Ur Leukocyte Esterase Urine RBC Urine WBC Ur Epithelial Cells Amorphous Sediment Urine Bacteria Influenza Typ A,B (EIA) Negative for flu a/b Ur L.pneumophila Ag 07/28/18 07/28/18 07/28/18 22:56 23:17 23:17 WBC RBC Hgb Hct MCV MCH MCHC RDW Plt Count MPV Gran % Lymph % (Auto) [place] % (Auto) Eos % (Auto) Baso % (Auto) Gran # Lymph # (Auto) [place] # (Auto) Eos # (Auto) Baso # (Auto) Sodium Potassium Chloride Carbon Dioxide Anion Gap BUN Creatinine Est GFR ( Amer) Est GFR (Non-Af Amer) POC Glucose (mg/dL) Random Glucose Calcium Total Bilirubin AST ALT Alkaline Phosphatase Total Protein Albumin Globulin Albumin/Globulin Ratio Procalcitonin Urine Color Yellow Urine Appearance Clear Urine pH 6.0 Ur Specific [place] 1.025 Urine Protein Negative Urine Glucose (UA) Negative Urine Ketones Negative Urine Blood Negative Urine Nitrate Negative Urine Bilirubin Negative Urine Urobilinogen 0.2 Ur Leukocyte Esterase Small H Urine RBC 0 - 2 Urine WBC 1 - 3 Ur Epithelial Cells 3 - 4 Amorphous Sediment Small Urine Bacteria Trace Influenza Typ A,B (EIA) Negative for flu a/b Ur L.pneumophila Ag Negative 07/29/18 07/29/18 07:37 11:30 WBC RBC Hgb Hct MCV MCH MCHC RDW Plt Count MPV Gran % Lymph % (Auto) [place] % (Auto) Eos % (Auto) Baso % (Auto) Gran # Lymph # (Auto) [place] # (Auto) Eos # (Auto) Baso # (Auto) Sodium Potassium Chloride Carbon Dioxide Anion Gap BUN Creatinine Est GFR ( Amer) Est GFR (Non-Af Amer) POC Glucose (mg/dL) 125 H 246 H Random Glucose Calcium Total Bilirubin AST ALT Alkaline Phosphatase Total Protein Albumin Globulin Albumin/Globulin Ratio Procalcitonin Urine Color Urine Appearance Urine pH Ur Specific [place] Urine Protein Urine Glucose (UA) Urine Ketones Urine Blood Urine Nitrate Urine Bilirubin Urine Urobilinogen Ur Leukocyte Esterase Urine RBC Urine WBC Ur Epithelial Cells Amorphous Sediment Urine Bacteria Influenza Typ A,B (EIA) Ur L.pneumophila Ag Assessment & Plan - Assessment and Plan (Free Text) Plan: Infectious diseases Attending Physician Attestation Patient seen and examined, discussed with biomedical equipment technician. I have reviewed the patient's history of present illness, past medical, social, personal and family histories, pertinent physical exam findings, course so far in this hospital admission, pertinent laboratory and imaging results. I agree with the above find ings, assessment and plan. In addition, patient with new onset fever and SIRS, source not yet determined, R/O bacteremia. No pneumonia on CT chest. Given a dose of IV Vanco and will continue Merrem , d/c Levaquin. Follow up blood cx results.
--- NOTE | 2018-07-29 17:57 | US ---
HISTORY: Leg pain and swelling. Evaluate for DVT PHYSICIAN(S): Jorge Dumont MD. TECHNIQUE: Duplex sonography and color-flow Doppler with graded compression were used to evaluate the deep venous systems of both lower extremities. FINDINGS: The visualized deep venous systems of both lower extremities are sonographically normal and compressible. Normal wave forms and augmentation are seen. There is no sonographic evidence for deep venous thrombosis in the visualized segments of both lower extremities. IMPRESSION: No sonographic evidence for deep venous thrombosis in the visualized segments of both lower extremities.
--- NOTE | 2018-07-30 07:56 | CP.PCM.PN ---
Subjective - Date & Time of Evaluation Date of Evaluation: 07/30/18 Time of Evaluation: 06:40 - Subjective Subjective: no distress, awake, alert, confuse Reason for consultation and follow up: Cardiac evaluation of shortness of breath, history of congestive heart failure, hypertension ,diabetes, Seen and examined by me and Dr. Tucker Objective - Vital Signs/Intake and Output Vital Signs (last 24 hours): Temp Pulse Resp BP Pulse Ox 98.6 F 82 20 165/84 H 96 07/30/18 06:00 07/30/18 06:00 07/30/18 06:00 07/30/18 06:00 07/30/18 06:00 Intake and Output: 07/30/18 07/30/18 06:59 18:59 Intake Total 240 Output Total 200 Balance 40 - Medications Medications: Current Medications Acetaminophen (Tylenol 325mg Tab) 650 mg PO Q6H PRN PRN Reason: Pain/Fever >100.4 F Last Admin: 07/28/18 17:45 Dose: 650 mg Aspirin (Ecotrin) 81 mg PO DAILY [facility] Last Admin: 07/29/18 09:55 Dose: 81 mg Atorvastatin Calcium (Lipitor) 10 mg PO DIN [facility] Last Admin: 07/29/18 17:56 Dose: 10 mg Calcitonin [place] (Miacalcin) 200 intlu NS DAILY [facility] Last Admin: 07/29/18 10:58 Dose: 200 intlu Carvedilol (Coreg) 3.125 mg PO BID [facility] Last Admin: 07/29/18 17:55 Dose: 3.125 mg Enoxaparin Sodium (Lovenox) 30 mg SC Q12H [facility]; Protocol Last Admin: 07/29/18 21:59 Dose: 30 mg Furosemide (Lasix) 20 mg IVP DAILY [facility] Last Admin: 07/29/18 09:50 Dose: 20 mg Meropenem (Merrem Iv 1 Gm Premix) 1 gm in 50 mls @ 100 mls/hr IVPB Q12 [facility]; Protocol Stop: 08/06/18 22:01 Last Admin: 07/29/18 21:59 Dose: 100 mls/hr Insulin Human Regular (Humulin R Low) 0 units SC ACHS [facility]; Protocol Last Admin: 07/29/18 21:57 Dose: Not Given Levalbuterol HCl (Xopenex) 0.63 mg IH [id number] PRN PRN Reason: Shortness of Breath Losartan Potassium (Cozaar) 50 mg PO DAILY [facility] Last Admin: 07/29/18 09:51 Dose: 50 mg Potassium Chloride (K-Dur 20 Meq Er Tab) 20 meq PO BRK [facility] Last Admin: 07/29/18 09:52 Dose: 20 meq - Labs Labs: 07/28/18 17:54 07/28/18 17:54 PT 11.8 SECONDS (9.4-12.5) 07/26/18 14:12 INR 1.03 07/26/18 14:12 APTT 25.9 Seconds (25.1-36.5) 07/26/18 14:12 - Constitutional Appears: Non-toxic, No Acute Distress - Head Exam Head Exam: NORMAL INSPECTION, NORMOCEPHALIC - Eye Exam Eye Exam: Normal appearance - ENT Exam ENT Exam: Mucous Membranes Dry - Respiratory Exam Respiratory Exam: Decreased Breath Sounds, NORMAL BREATHING PATTERN - Cardiovascular Exam Cardiovascular Exam: REGULAR RHYTHM, +S1, +S2 - GI/Abdominal Exam GI & Abdominal Exam: Soft, Normal Bowel Sounds - Extremities Exam Additional comments: 2+edema - Neurological Exam Neurological Exam: Alert, Awake Additional comments: confuse - Skin Skin Exam: Dry, Normal Color, Warm Assessment and Plan - Assessment and Plan (Free Text) Assessment: An 83 year old female obese, who came in to the ER due to shortness of breath and leg swelling. History of congestive heart failure, hypertension ,diabetes, depression, cellulitis,appendectomy,cholecystectomy, right foot bunion with surgery, hyperparathyroidism, hypercalcemia, degenerative joint disease, Alzheimer's disease. Significant memory deficit, more confuse. Denies chest pain. Troponin normal. EKG showed NSR with APC's, old inferior wall [place], Chest X ray showed cardiomegaly, mild pulmonary venous congestion. Exacerbation of congestive heart failure.Echo done.normal chambers, LVEF 50-55%, Mild AR, trace MR, mild TR RVSP 38 mmHg, trace pulmonic valve regurgitation, no vegetation. Patient confuse. Stress test cancelled yesterday.Will reschedule. Leg swelling, Ultrasound of lower extremities negative for DVT. Chest CT negative for pneumon ia. Plan: Stress test cancelled yesterday, will reschedule Denies shortness of breath, no distress Heart rate controlled On Coreg 3.125mg BID, Lasix 20 mg daily, Cozaar 50 mg daily Kdur 20 meq daily. ASA 81 mg daily, Lipitor 10 mg daily Will increase Lasix due to leg swelling Continue current treatment Continue IV antibiotics per ID Will follow up Plan and treatment discussed with
[2018-07-30] MEDS: Insulin Reg-LOW-Coverage SC SCH ×4 (08:19→21:52)
[2018-07-30] MEDS: Potassium Chloride 20 mEq ER Tab PO SCH (08:19)
[2018-07-30] MEDS: Enoxaparin 30 mg Syringe SC SCH ×2 (10:00→21:03)
[2018-07-30] MEDS: Meropenem IV 1 gm in NS 1 GM/50 ML BAG IVPB SCH (10:01)
--- NOTE | 2018-07-30 10:30 | CP.PCM.PN ---
Subjective - Date & Time of Evaluation Date of Evaluation: 07/30/18 Time of Evaluation: 10:15 - Subjective Subjective: resting comfortably, NAD, no chest pain or SOB Objective - Vital Signs/Intake and Output Vital Signs (last 24 hours): Temp Pulse Resp BP Pulse Ox 98.6 F 99 H 20 164/79 H 96 07/30/18 06:00 07/30/18 10:00 07/30/18 06:00 07/30/18 10:00 07/30/18 06:00 Intake and Output: 07/30/18 07/30/18 06:59 18:59 Intake Total 240 Output Total 200 Balance 40 - Medications Medications: Current Medications Acetaminophen (Tylenol 325mg Tab) 650 mg PO Q6H PRN PRN Reason: Pain/Fever >100.4 F Last Admin: 07/28/18 17:45 Dose: 650 mg Aspirin (Ecotrin) 81 mg PO DAILY [facility] Last Admin: 07/30/18 10:00 Dose: 81 mg Atorvastatin Calcium (Lipitor) 10 mg PO DIN [facility] Last Admin: 07/29/18 17:56 Dose: 10 mg Calcitonin [place] (Miacalcin) 200 intlu NS DAILY [facility] Last Admin: 07/29/18 10:58 Dose: 200 intlu Carvedilol (Coreg) 3.125 mg PO BID [facility] Last Admin: 07/30/18 10:00 Dose: 3.125 mg Enoxaparin Sodium (Lovenox) 30 mg SC Q12H [facility]; Protocol Last Admin: 07/30/18 10:00 Dose: 30 mg Furosemide (Lasix) 40 mg IVP DAILY [facility] Last Admin: 07/30/18 10:00 Dose: 40 mg Meropenem (Merrem Iv 1 Gm Premix) 1 gm in 50 mls @ 100 mls/hr IVPB Q12 [facility]; Protocol Stop: 08/06/18 22:01 Last Admin: 07/30/18 10:01 Dose: 100 mls/hr Insulin Human Regular (Humulin R Low) 0 units SC ACHS [facility]; Protocol Last Admin: 07/30/18 08:19 Dose: 1 units Levalbuterol HCl (Xopenex) 0.63 mg IH [id number] PRN PRN Reason: Shortness of Breath Losartan Potassium (Cozaar) 100 mg PO DAILY [facility] Potassium Chloride (K-Dur 20 Meq Er Tab) 20 meq PO BRK [facility] Last Admin: 07/30/18 08:19 Dose: 20 meq - Labs Labs: 07/28/18 17:54 07/28/18 17:54 PT 11.8 SECONDS (9.4-12.5) 07/26/18 14:12 INR 1.03 07/26/18 14:12 APTT 25.9 Seconds (25.1-36.5) 07/26/18 14:12 - Respiratory Exam Respiratory Exam: Clear to Ausculation Bilateral, NORMAL BREATHING PATTERN - Cardiovascular Exam Cardiovascular Exam: REGULAR RHYTHM - GI/Abdominal Exam GI & Abdominal Exam: Soft, Normal Bowel Sounds - Extremities Exam Extremities Exam: Normal Inspection - Neurological Exam Neurological Exam: Altered - Skin Skin Exam: Dry, Warm Assessment and Plan (1) CHF exacerbation Status: Acute (2) Alzheimer disease Status: Chronic (3) Type II diabetes mellitus Status: Chronic (4) Hyperparathyroidism Status: Chronic (5) Fever Status: Resolved (6) UTI (urinary tract infection) Status: Acute - Assessment and Plan (Free Text) Plan: Urine C&S w/gram + cocci, ID & S pending, continue IV Abx/ID follow-up/PT and SW for DC planning
[2018-07-30] MEDS: Calcitonin 200 Int Units/Inh Nasal Spray (3.7 ml) NS SCH (12:01)
--- NOTE | 2018-07-30 22:15 | PN ---
DATE: 07/30/2018 LOCATION: The patient in room 275, bed 1. Detailed progress note has been already written by Dorene Flores. This is an additional note to that. The patient admitted with shortness of breath, history of congestive heart failure, hypertension, diabetes. The patient also confused. Clinically, the patient is not in any respiratory distress. There is no history of chest pain or palpitation. Lungs, there is no significant rales. The patient already had echo done. Stress test was scheduled. The patient is very confused, not a candidate to have stress test, so we will treat her medically at this moment and the patient will continue losartan, Coreg, aspirin, Lasix, and atorvastatin. The patient also getting IV antibiotics for possible urinary tract infection and we will continue to follow with you. We would repeat SMA-7. Roland Tucker MD
--- NOTE | 2018-07-30 22:23 | PN ---
DATE: 07/30/2018 SUBJECTIVE: The patient is seen earlier today in 275, bed 1. No fevers. No chills. PHYSICAL EXAMINATION: GENERAL: She is weak. VITAL SIGNS: Temperature is 98, blood pressure is 150/80, and respiratory rate of 18. HEENT: Unremarkable. NECK: Supple. LUNGS: Decreased breath sounds. HEART: Normal S1, S2. ABDOMEN: Soft. LABORATORY DATA: White count of 10,000 and hemoglobin noted. Chemistries are reviewed. Urinalysis is reviewed. Urine legionella antigen is negative. Influenza is negative. Microbiology reveals the blood cultures show no growth at 24 hours. Urine cultures are gram-positive cocci. The patient has received doses of vancomycin and meropenem. Dr. Robles's note is reviewed. The patient's procalcitonin is less than 0.05. The patient did have a temperature of 101.4 on the 07/28/2018. The patient also had a CAT scan of the chest with no focal consolidation, no pleural effusions, no pneumothorax, no pulmonary nodules. ASSESSMENT AND PLAN: This is an 83-year-old female with congestive heart failure, diabetes, Alzheimer's, hypertension, hyperparathyroidism, who appears to be in acute congestive heart failure in face of chronic congestive heart failure, negative infiltrates, negative influenza. Negative CAT scan. Negative blood cultures. Urine culture is gram-positive cocci; however, urinalysis only 1 to 3 wbcs. The patient is on meropenem, but discontinue meropenem and follow the patient with you. We will follow the patient. The patient is at risk for developing nosocomial infection. Carlos Smith MD
[2018-07-31 08:04] LABS: BASO # 0.02 K/mm3 (0.0-2.0); BASO % 0.2 % (0.0-3.0); EOS % 0.3 % (1.5-5.0); GRAN # 6.3 (1.4-6.5); GRAN % 68.5 % (50.0-68.0); HEMOGLOBIN 12.7 g/dL (12.0-16.0); LYMPH # 2.2 (1.2-3.4); MEAN CELL VOLUME 92.6 fl (80.0-105.0); MEAN CORPUSCULAR HEMOGLOBIN 30.4 pg (25.0-35.0); MEAN CORPUSCULAR HGB CONC 32.8 g/dl (31.0-37.0); MEAN PLATELET VOLUME 10.6 fl (7.0-11.0); MONO # 0.6 (0.1-0.6); RBC 4.18 10^6/uL (3.5-6.1); RED CELL DISTRIBUTION WIDTH 14.1 % (11.5-14.5); WHITE BLOOD COUNT 9.2 10^3/uL (4.5-11.0)
[2018-07-31] MEDS: Potassium Chloride 20 mEq ER Tab PO SCH (08:15)
[2018-07-31] MEDS: Insulin Reg-LOW-Coverage SC SCH ×4 (08:15→22:39)
[2018-07-31 08:20] LABS: ALB/GLOB RATIO 1.1 (1.1-1.8); ALBUMIN 3.8 g/dL (3.0-4.8); ALT/SGPT 22 U/L (7-56); AST/SGOT 20 U/L (14-36); BLOOD UREA NITROGEN 33 mg/dL (7-21); CALCIUM 9.9 mg/dL (8.4-10.5); GFR NON-AFRICAN AMERICAN 60
--- NOTE | 2018-07-31 09:07 | CP.PCM.PN ---
Subjective - Date & Time of Evaluation Date of Evaluation: 07/31/18 Time of Evaluation: 06:35 - Subjective Subjective: no distress, awake, alert, confuse Reason for consultation and follow up: Cardiac evaluation of shortness of breath, history of congestive heart failure, hypertension ,diabetes, Seen and examined by me and Dr. Tucker Objective - Vital Signs/Intake and Output Vital Signs (last 24 hours): Temp Pulse Resp BP Pulse Ox 98.7 F 82 20 131/72 97 07/31/18 06:00 07/31/18 06:00 07/31/18 06:00 07/31/18 06:00 07/31/18 06:00 Intake and Output: 07/31/18 07/31/18 06:59 18:59 Intake Total 240 Balance 240 - Medications Medications: Current Medications Acetaminophen (Tylenol 325mg Tab) 650 mg PO Q6H PRN PRN Reason: Pain/Fever >100.4 F Last Admin: 07/28/18 17:45 Dose: 650 mg Aspirin (Ecotrin) 81 mg PO DAILY [facility] Last Admin: 07/30/18 10:00 Dose: 81 mg Atorvastatin Calcium (Lipitor) 10 mg PO DIN [facility] Last Admin: 07/30/18 17:52 Dose: 10 mg Calcitonin [place] (Miacalcin) 200 intlu NS DAILY [facility] Last Admin: 07/30/18 12:01 Dose: 200 intlu Carvedilol (Coreg) 3.125 mg PO BID [facility] Last Admin: 07/30/18 17:53 Dose: 3.125 mg Enoxaparin Sodium (Lovenox) 30 mg SC Q12H [facility]; Protocol Last Admin: 07/30/18 21:03 Dose: 30 mg Furosemide (Lasix) 40 mg IVP DAILY [facility] Last Admin: 07/30/18 10:00 Dose: 40 mg Insulin Human Regular (Humulin R Low) 0 units SC ACHS [facility]; Protocol Last Admin: 07/31/18 08:15 Dose: 1 units Levalbuterol HCl (Xopenex) 0.63 mg IH [id number] PRN PRN Reason: Shortness of Breath Losartan Potassium (Cozaar) 100 mg PO DAILY [facility] Potassium Chloride (K-Dur 20 Meq Er Tab) 20 meq PO BRK [facility] Last Admin: 07/31/18 08:15 Dose: 20 meq - Labs Labs: 07/31/18 07:30 07/31/18 07:30 PT 11.8 SECONDS (9.4-12.5) 07/26/18 14:12 INR 1.03 07/26/18 14:12 APTT 25.9 Seconds (25.1-36.5) 07/26/18 14:12 Assessment and Plan - Assessment and Plan (Free Text) Assessment: An 83 year old female obese, who came in to the ER due to shortness of breath and leg swelling. History of congestive heart failure, hypertension ,diabetes, depression, cellulitis,appendectomy,cholecystectomy, right foot bunion with surgery, hyperparathyroidism, hypercalcemia, degenerative joint disease, Alzheimer's disease. Significant memory deficit, more confuse. Denies chest pain. Troponin normal. EKG showed NSR with APC's, old inferior wall WI, Chest X ray showed cardiomegaly, mild pulmonary venous congestion. Exacerbation of congestive heart failure.Echo done.normal chambers, LVEF 50-55%, Mild AR, trace MR, mild TR RVSP 38 mmHg, trace pulmonic valve regurgitation, no vegetation. Patient confuse. Stress test cancelled due to patient confuse. .Will reschedule. Leg swelling, Ultrasound of lower extremities negative for DVT. Chest CT negative for pneumonia. Plan: Denies shortness of breath, no distress Heart rate controlled Blood pressure controlled Leg swelling less, increased Lasix dose, will continue to diurese On Coreg 3.125mg BID, Lasix 40 mg daily, Cozaar 50 mg daily K-dur 20 meq daily. ASA 81 mg daily, Lipitor 10 mg daily Continue current treatment Lovenox for DVT prophylaxis IV antibiotics discontinued per ID Control glucose Physical therapy Will follow up Plan and treatment discussed with
[2018-07-31] MEDS: Calcitonin 200 Int Units/Inh Nasal Spray (3.7 ml) NS SCH (09:27)
[2018-07-31] MEDS: Enoxaparin 30 mg Syringe SC SCH ×2 (09:29→21:13)
--- NOTE | 2018-07-31 11:22 | CP.PCM.PN ---
Subjective - Date & Time of Evaluation Date of Evaluation: 07/31/18 Time of Evaluation: 10:45 - Subjective Subjective: resting comfortably, NAD Objective - Vital Signs/Intake and Output Vital Signs (last 24 hours): Temp Pulse Resp BP Pulse Ox 98.7 F 583 H 20 117/77 97 07/31/18 06:00 07/31/18 09:34 07/31/18 06:00 07/31/18 09:34 07/31/18 06:00 Intake and Output: 07/31/18 07/31/18 06:59 18:59 Intake Total 240 Balance 240 - Medications Medications: Current Medications Acetaminophen (Tylenol 325mg Tab) 650 mg PO Q6H PRN PRN Reason: Pain/Fever >100.4 F Last Admin: 07/28/18 17:45 Dose: 650 mg Aspirin (Ecotrin) 81 mg PO DAILY [facility] Last Admin: 07/31/18 09:27 Dose: 81 mg Atorvastatin Calcium (Lipitor) 10 mg PO DIN [facility] Last Admin: 07/30/18 17:52 Dose: 10 mg Calcitonin [place] (Miacalcin) 200 intlu NS DAILY [facility] Last Admin: 07/31/18 09:27 Dose: 200 intlu Carvedilol (Coreg) 3.125 mg PO BID [facility] Last Admin: 07/31/18 09:34 Dose: 3.125 mg Enoxaparin Sodium (Lovenox) 30 mg SC Q12H [facility]; Protocol Last Admin: 07/31/18 09:29 Dose: 30 mg Furosemide (Lasix) 40 mg IVP DAILY [facility] Last Admin: 07/31/18 09:34 Dose: 40 mg Insulin Human Regular (Humulin R Low) 0 units SC ACHS [facility]; Protocol Last Admin: 07/31/18 08:15 Dose: 1 units Levalbuterol HCl (Xopenex) 0.63 mg IH [id number] PRN PRN Reason: Shortness of Breath Losartan Potassium (Cozaar) 100 mg PO DAILY [facility] Last Admin: 07/31/18 09:27 Dose: 100 mg Potassium Chloride (K-Dur 20 Meq Er Tab) 20 meq PO BRK [facility] Last Admin: 07/31/18 08:15 Dose: 20 meq - Labs Labs: 07/31/18 07:30 07/31/18 07:30 PT 11.8 SECONDS (9.4-12.5) 07/26/18 14:12 INR 1.03 07/26/18 14:12 APTT 25.9 Seconds (25.1-36.5) 07/26/18 14:12 - Respiratory Exam Respiratory Exam: Clear to Ausculation Bilateral, NORMAL BREATHING PATTERN - Cardiovascular Exam Cardiovascular Exam: REGULAR RHYTHM - GI/Abdominal Exam GI & Abdominal Exam: Soft, Normal Bowel Sounds - Extremities Exam Extremities Exam: Normal Inspection - Neurological Exam Neurological Exam: Altered - Skin Skin Exam: Dry, Warm Assessment and Plan (1) CHF exacerbation Status: Acute (2) Alzheimer disease Status: Chronic (3) Type II diabetes mellitus Status: Chronic (4) Hyperparathyroidism Status: Chronic (5) Fever Status: Resolved (6) UTI (urinary tract infection) Status: Acute - Assessment and Plan (Free Text) Plan: stable off IV Abx, SW for DC planning
--- NOTE | 2018-07-31 11:31 | PN ---
DATE: 07/31/2018 SUBJECTIVE: Patient is no acute distress, nontoxic. OBJECTIVE: VITAL SIGNS: Temperature is 98, blood pressure is 130/70, respiratory rate of 18. HEENT: Unremarkable. NECK: Supple. LUNGS: Have decreased breath sounds. HEART: Normal S1, S2. LABORATORY EXAMINATION: Reveals a white count of 9.2, hemoglobin of 12. Chemistries are noted. Urinalysis is noted. Urine for Legionella antigen is noted. Microbiology reveals Enterococcus in the urine. It is Enterococcus faecalis. Review of orders reveals the patient to be off of antibiotics. ASSESSMENT AND PLAN: An 83-year-old female with congestive heart failure, diabetes mellitus, Alzheimer's, hypertension, hyperparathyroidism and acute congestive heart failure in face of chronic congestive heart failure with negative infiltrates, negative influenza, negative CT scan, negative cultures with Enterococcus in the urine. However, urinalysis is only one to two WBCs and now off of antibiotics, afebrile and the patient is at risk for developing nosocomial infections. The patient completed meropenem therapy now and off of antibiotics. Carols Smith MD
--- NOTE | 2018-07-31 19:34 | PN ---
DATE: 07/31/2018 ADDITIONAL PROGRESS NOTE LOCATION: The patient in room 275, bed 1. REASON FOR CONSULTATION: CHF, shortness of breath, hypertension, diabetes, depression, and Alzheimer's disease. SUBJECTIVE: The patient still was admitted with shortness of breath and the patient was also confused. The patient had swelling on the legs and the patient lying flat in bed at this moment without respiratory distress. The patient still has some swelling on the legs, so we will continue Lasix 40 IV daily, potassium 20 mg daily, Coreg 3.125 b.i.d., Losartan 100 mg daily, atorvastatin 10 daily, Lovenox 30 mg subcu every 12 hours. IV antibiotics has been discontinued at present, but we will continue present therapy. We will follow with you. Roland Tucker MD
[2018-08-01 06:34] VITALS: O2SAT 96
[2018-08-01] MEDS: Insulin Reg-LOW-Coverage SC SCH ×3 (08:04→17:35)
[2018-08-01] MEDS: Potassium Chloride 20 mEq ER Tab PO SCH (08:05)
[2018-08-01] MEDS: Enoxaparin 30 mg Syringe SC SCH (09:10)
[2018-08-01] MEDS: Calcitonin 200 Int Units/Inh Nasal Spray (3.7 ml) NS SCH (09:10)
--- NOTE | 2018-08-01 12:03 | CP.PCM.PN ---
Subjective - Date & Time of Evaluation Date of Evaluation: 08/01/18 Time of Evaluation: 09:00 - Subjective Subjective: resting comfortably, NAD, no chest pain, no SOB, had large BM s/p Dulcolax suppository Objective - Vital Signs/Intake and Output Vital Signs (last 24 hours): Temp Pulse Resp BP Pulse Ox 97.7 F 80 20 146/75 96 08/01/18 06:00 08/01/18 09:09 08/01/18 06:00 08/01/18 09:10 08/01/18 06:00 Intake and Output: 08/01/18 08/01/18 06:59 18:59 Intake Total 1680 Output Total 750 Balance 930 - Medications Medications: Current Medications Acetaminophen (Tylenol 325mg Tab) 650 mg PO Q6H PRN PRN Reason: Pain/Fever >100.4 F Last Admin: 07/28/18 17:45 Dose: 650 mg Aspirin (Ecotrin) 81 mg PO DAILY [facility] Last Admin: 08/01/18 09:09 Dose: 81 mg Atorvastatin Calcium (Lipitor) 10 mg PO DIN [facility] Last Admin: 07/31/18 18:03 Dose: 10 mg Calcitonin [place] (Miacalcin) 200 intlu NS DAILY [facility] Last Admin: 08/01/18 09:10 Dose: 200 intlu Carvedilol (Coreg) 3.125 mg PO BID [facility] Last Admin: 08/01/18 09:09 Dose: 3.125 mg Enoxaparin Sodium (Lovenox) 30 mg SC Q12H [facility]; Protocol Last Admin: 08/01/18 09:10 Dose: 30 mg Furosemide (Lasix) 40 mg IVP DAILY [facility] Last Admin: 08/01/18 09:10 Dose: 40 mg Insulin Human Regular (Humulin R Low) 0 units SC ACHS [facility]; Protocol Last Admin: 08/01/18 08:04 Dose: 1 unit Levalbuterol HCl (Xopenex) 0.63 mg IH [id number] PRN PRN Reason: Shortness of Breath Losartan Potassium (Cozaar) 100 mg PO DAILY [facility] Last Admin: 08/01/18 09:09 Dose: 100 mg Potassium Chloride (K-Dur 20 Meq Er Tab) 20 meq PO BRK [facility] Last Admin: 08/01/18 08:05 Dose: 20 meq - Labs Labs: 07/31/18 07:30 07/31/18 07:30 PT 11.8 SECONDS (9.4-12.5) 07/26/18 14:12 INR 1.03 07/26/18 14:12 APTT 25.9 Seconds (25.1-36.5) 07/26/18 14:12 - Respiratory Exam Respiratory Exam: Clear to Ausculation Bilateral, NORMAL BREATHING PATTERN - Cardiovascular Exam Cardiovascular Exam: REGULAR RHYTHM - GI/Abdominal Exam GI & Abdominal Exam: Soft, Normal Bowel Sounds - Extremities Exam Extremities Exam: Normal Inspection - Neurological Exam Neurological Exam: Abnormal Gait, Altered Neuro motor strength exam: Left Upper Extremity: 4, Right Upper Extremity: 4, Left Lower Extremity: 3, Right Lower Extremity: 3 - Skin Skin Exam: Dry, Warm Assessment and Plan (1) CHF exacerbation Status: Acute (2) Alzheimer disease Status: Chronic (3) Type II diabetes mellitus Status: Chronic (4) Hyperparathyroidism Status: Chronic (5) Fever Status: Resolved (6) UTI (urinary tract infection) Status: Resolved - Assessment and Plan (Free Text) Plan: continue PT/SW for DC planning, requires 24hr supervision due to ADL deficits
[2018-08-01] MEDS ORDERED: guaiFENesin 100 mg/5 ml Syrup UD PO PRN (14:03)
--- NOTE | 2018-08-01 17:20 | CP.PCM.PN ---
Subjective - Date & Time of Evaluation Date of Evaluation: 08/01/18 Time of Evaluation: 10:45 - Subjective Subjective: Comfortable, afebrile, not in distress. Objective - Vital Signs/Intake and Output Vital Signs (last 24 hours): Temp Pulse Resp BP Pulse Ox 97.7 F 77 20 132/76 96 08/01/18 06:00 08/01/18 06:00 08/01/18 06:00 08/01/18 06:00 08/01/18 06:00 Intake and Output: 07/31/18 08/01/18 18:59 06:59 Intake Total 0 1680 Output Total 750 Balance 0 930 - Medications Medications: Current Medications Acetaminophen (Tylenol 325mg Tab) 650 mg PO Q6H PRN PRN Reason: Pain/Fever >100.4 F Last Admin: 07/28/18 17:45 Dose: 650 mg Aspirin (Ecotrin) 81 mg PO DAILY [facility] Last Admin: 07/31/18 09:27 Dose: 81 mg Atorvastatin Calcium (Lipitor) 10 mg PO DIN [facility] Last Admin: 07/31/18 18:03 Dose: 10 mg Calcitonin [place] (Miacalcin) 200 intlu NS DAILY [facility] Last Admin: 07/31/18 09:27 Dose: 200 intlu Carvedilol (Coreg) 3.125 mg PO BID [facility] Last Admin: 07/31/18 18:02 Dose: 3.125 mg Enoxaparin Sodium (Lovenox) 30 mg SC Q12H [facility]; Protocol Last Admin: 07/31/18 21:13 Dose: 30 mg Furosemide (Lasix) 40 mg IVP DAILY [facility] Last Admin: 07/31/18 09:34 Dose: 40 mg Insulin Human Regular (Humulin R Low) 0 units SC ACHS [facility]; Protocol Last Admin: 07/31/18 22:39 Dose: 2 units Levalbuterol HCl (Xopenex) 0.63 mg IH [id number] PRN PRN Reason: Shortness of Breath Losartan Potassium (Cozaar) 100 mg PO DAILY [facility] Last Admin: 07/31/18 09:27 Dose: 100 mg Potassium Chloride (K-Dur 20 Meq Er Tab) 20 meq PO BRK [facility] Last Admin: 07/31/18 08:15 Dose: 20 meq - Labs Labs: 07/31/18 07:30 07/31/18 07:30 PT 11.8 SECONDS (9.4-12.5) 07/26/18 14:12 INR 1.03 07/26/18 14:12 APTT 25.9 Seconds (25.1-36.5) 07/26/18 14:12 - Constitutional Appears: Chronically Ill - Head Exam Head Exam: NORMAL INSPECTION - Respiratory Exam Respiratory Exam: Decreased Breath Sounds - Cardiovascular Exam Cardiovascular Exam: +S1, +S2 - GI/Abdominal Exam GI & Abdominal Exam: Soft. absent: Tenderness Assessment and Plan - Assessment and Plan (Free Text) Plan: Assessment SIRS without evidence of sepsis CHF exacerbation HTN DM Alzheimer's disease Plan continue to monitor off antibiotics since she is at risk for nosocomial infections
[2018-08-01 17:37] VITALS: BP 149/85; PULSE 82
[2018-08-01 17:41] VITALS: RESP 19; TEMP 98.7
--- NOTE | 2018-08-01 18:24 | PN ---
DATE: 08/01/2018 REASON FOR CONSULTATION: Shortness of breath, hypertension, diabetes, depression, Alzheimer's disease, refused stress test, the patient is confused. SUBJECTIVE: The patient is diagnosed with chest pain, shortness of breath, denies any palpitations, lying flat in the bed. PHYSICAL EXAMINATION VITAL SIGNS: Temperature afebrile. heart rate 80, blood pressure 146/75. HEENT: PERRLA. Extraocular muscles intact. NECK: Supple. No carotid bruit or thyromegaly. CHEST: Clear to auscultation. HEART: S1, S2, regular. ABDOMEN: Soft. EXTREMITIES: Clubbing or cyanosis is negative. LABORATORY DATA: Blood workup as follows. WBC 9.8, hemoglobin 12, hematocrit 38.7, platelets 255. Chemistry shows sodium 139, potassium . Anion gap of 11. BUN 33, creatinine 0.9. IMPRESSION: An 83-year-old female with past medical history significant for hypertension, diabetes, admitted with shortness of breath. The patient had echocardiography done that revealed ejection fraction 50% to 55%, trace mitral regurgitation to mild tricuspid regurgitation, RV systolic pressure 36, trace pulmonary insufficiency. The patient is confused, refused stress test in the past, clinically improved, currently not in the patient is confused. RECOMMENDATIONS: Aggressive medical treatment. Not a candidate for invasive or noninvasive further workup. Continue Coreg 3.125 mg daily. Continue losartan 100 mg daily. Continue aspirin. Continue IV Lasix, which changed to p.o. We will follow with you. Continue DVT prophylaxis. We will discharge to telemetry. Thank you Dr. Robles for providing us the opportunity in taking care of your patient, Bekah Carty. Roland Mckenzie MD cc: Dr. Robles.
--- NOTE | 2018-08-01 20:36 | DS ---
HOSPITAL COURSE The patient is an 83-year-old female admitted through the emergency department on 07/26/2018 with shortness of breath, confusion, and inability to walk with increasing swelling of the lower extremities. EKG and cardiac enzymes were negative for acute myocardial infarct/ischemia. The patient was seen in consultation by Cardiology, Dr. Tucker, she was given Lasix, potassium and started on carvedilol 3.125 mg twice daily. Her hospital course was complicated by urinary tract infection with Enterococcus for which she received antibiotics with clinical improvement. She is medically stable for discharge at the present time. Vital signs and physical examination are as per progress note from 08/01/2018. IMPRESSION: 1. Hypertension, hypertensive cardiovascular disease, and congestive heart failure. 2. Type 2 diabetes mellitus. 3. Degenerative joint disease/obesity. 4. Dementia, probable Alzheimer's versus mixed. PLAN: The patient will be discharged on the following medications; metformin 1000 mg twice daily, losartan 100 mg daily, Lasix 40 mg daily, K-Dur 20 mEq daily, Fosamax 10 mg daily, and carvedilol 3.125 mg twice daily. She will be maintained on a consistent carbohydrate diet and activity, the patient will receive physical therapy at home. She is dependent with ADLs and will be provided 24-hour care by her family. She will be follow up in the office within the next week. PAULA Vargas MD
--- NOTE | 2018-08-12 10:26 | PQF ---
PROVIDER RESPONSE TEXT: Patient with chronic diastolic CHF due to hypertension REVIEWER QUERY TEXT: CHF Acuity and Type Congestive Heart Failure is documented in the Medical Record. Please document the type and acuity (in cludes probable or suspected) Such as: Type: -- Systolic -- Diastolic -- Combined -- Other, please specify Acuity: -- Acute -- Chronic -- Acute on chronic -- Other, please specify Also please document the underlying cause of the CHF (includes probable or suspected) The patient's Clinical Indicators include: Please see query. Thank you. Query created by: Toshia Romero on 08/02/2018 11:07 AM Electronically signed by: William Robles MD 08/12/2018 10:22 AM
== END 2018-08-01 19:25 | disposition home health service (06) | DRG 292 ==
LOC: ED 13:20 → ERH 15:01 → 2RSO 18:45
PROVIDERS: ADMIT Internal Medicine; ATTEND Internal Medicine
DX: I11.0 Hypertensive heart disease with heart failure (principal); N39.0 Urinary tract infection, site not specified; B95.2 Enterococcus as the cause of diseases classified elsewhere; I50.32 Chronic diastolic (congestive) heart failure; E11.40 Type 2 diabetes mellitus with diabetic neuropathy, unspecified; E11.51 Type 2 diabetes mellitus with diabetic peripheral angiopathy without gangrene; E21.3 Hyperparathyroidism, unspecified; E66.9 Obesity, unspecified; F02.80 Dementia in other diseases classified elsewhere, unspecified severity, without behavioral disturbance, psychotic disturbance, mood disturbance, and anxiety; F32.89 Other specified depressive episodes; G30.9 Alzheimer's disease, unspecified; I25.2 Old myocardial infarction; M19.90 Unspecified osteoarthritis, unspecified site; M21.611 Bunion of right foot; M81.0 Age-related osteoporosis without current pathological fracture; Z79.83 Long term (current) use of bisphosphonates; Z79.84 Long term (current) use of oral hypoglycemic drugs; Z79.899 Other long term (current) drug therapy; Z90.49 Acquired absence of other specified parts of digestive tract; Z87.892 Personal history of anaphylaxis; Z91.013 Allergy to seafood; Z68.35 Body mass index [BMI] 35.0-35.9, adult